=== PATIENT | male | born 1940 | race Caucasian/White ===

== ENCOUNTER 2016-11-30 15:22 | Observation (INO) ==
--- NOTE | 2016-11-30 16:00 | Emergency Department Note ---
Disposition Clinical Impression: Generalized weakness UTI (urinary tract infection) Qualifiers: Urinary tract infection type: catheter-associated UTI Indwelling urinary catheter type: indwelling urethral catheter Encounter type: initial encounter Qualified Code(s): T83.511A - Infection and inflammatory reaction due to indwelling urethral catheter, initial encounter; N39.0 - Urinary tract infection , site not specified Disposition: Admitted As Inpatient Condition: Good Referrals: Gina Newman MANUFACTURING LAB TECHNICIAN [Primary Care Provider] - Forms: Work/School Release, ED Satisfaction Letter Time of Disposition: 17:42 Weakness HPI - General Chief complaint: ED General Medical Stated complaint: ongoing weakness in knees and legs Time Seen by Provider: 11/30/16 15:45 Source: patient Mode of arrival: ambulatory Limitations: no limitations Nursing Notes Reviewed: Yes Vital Signs Reviewed: Yes - History of Present Illness HPI Narrative: 76-year-old white male presents the emergency life squad complaining of weakness. His caregiver presents with him. She reports that he has been getting increasingly weak for the last several months. He was able to ambulate with a walker at the end of the summer. Throughout the fall he is gradually deteriorated. He has reached the point now where he cannot get up and stand or weight-bear. He has some chronic back pain. He is apparently fallen several times recently according to caregiver, he denies falling. He had a biopsy of his penis done on Tuesday by Dr. Caicedo. He is apparently been trying to get into physical therapy but has been unsuccessful. Pt Subjective Complaint: generalized weakness/fatigue Onset (ago): month(s) Duration: constant Location: generalized Migration: none Pain Severity: none Pain Scale: 6 If pain, quality: sharp Improves with: none Worsens with: movement Context: other (Gradual deterioration over several months.) Associated symptoms: Reports: denies other symptoms - Related Data Home Medications Medication Instructions Recorded Confirmed Amitriptyline [Elavil] 25 mg PO HS 09/18/15 11/30/16 Docusate Sodium [Colace] 100 mg PO BID PRN 09/18/15 11/30/16 Enalapril Maleate [Vasotec] 20 mg PO QAM 09/18/15 11/30/16 Furosemide [Lasix] 60 mg PO DAILY 09/18/15 11/30/16 Gabapentin [Neurontin] 400 mg PO TID 09/18/15 11/30/16 Lactulose 10 gm PO QAM 09/18/15 11/30/16 Omeprazole [PriLOSEC] 20 mg PO DAILY 09/18/15 11/30/16 Potassium Chloride 20 meq PO DAILY 09/18/15 11/30/16 Pravastatin Sodium [Pravachol] 20 mg PO QAM 09/18/15 11/30/16 Cyanocobalamin (Vitamin B-12) 1,000 mcg PO DAILY 08/08/16 11/30/16 [Vitamin B12] Cyclobenzaprine HCl 10 mg PO TID PRN 08/08/16 11/30/16 Oxycodone HCl/Acetaminophen 1 each PO TID 08/08/16 11/30/16 [Percocet 5-325 mg Tablet] Previous Rx's Medication Instructions Recorded Psyllium [Metamucil Fiber Singles 1 packet PO TID #90 powd.pack 08/12/16 Packet] Ascorbic Acid [Vitamin C] 500 mg PO DAILY #30 tablet 08/20/16 Ferrous Sulfate 325 mg PO DAILY #30 tablet 08/20/16 Metformin [Glucophage] 500 mg PO BIDWM #60 tablet 08/20/16 Allergies Allergy/AdvReac Type Severity Reaction Status Date / Time Tizanidine [From Zanaflex] Allergy Vomiting Verified 08/08/16 14:29 All systems ED: reviewed and negative except as stated. Constitutional: Denies: fever, chills Eyes: Denies: vision change ENT ED: Denies: ear pain, throat pain Cardiovascular: Denies: chest pain, palpitations Respiratory: Denies: cough, dyspnea, wheezes Gastrointestinal: Denies: abdominal pain, nausea, vomiting, diarrhea Genitourinary: Reports: other (Indwelling Heredia catheter. Recent penis biopsy.) . Denies: urgency, dysuria Musculoskeletal: Reports: back pain (Chronic muscle spasms.) Neurological: Reports: weakness. Denies: headache, numbness, paresthesias Past Medical History - Past Medical History Medical history: Reports: arthritis, COPD, hyperlipidemia, hypertension, other Surgical history: Reports: prostatectomy Psychiatric history: Reports: no psych history - Social History Smoking Status: Former smoker Smokeless Tobacco Status: No Alcohol use: Reports: none Drug use: Reports: none Physical Exam - General Limitations: no limitations General appearance: alert, in no apparent distress - Head Head exam: atraumatic, normocephalic - Eye Eye exam: Present: PERRL, EOMI. Absent: scleral icterus, conjunctival injection - ENT ENT exam: normal oropharynx, mucous membranes moist, TM's normal bilaterally - Neck Neck exam: Present: normal inspection, full ROM, trachea midline. Absent: lymphadenopathy - Respiratory Respiratory exam: Present: normal lung sounds bilaterally. Absent: respiratory distress, wheezes - Cardiovascular Cardiovascular exam: Present: regular rate, normal rhythm, normal heart sounds - Abdominal Exam Abdominal exam: Present: soft, Non-Tender, normal bowel sounds, other (Obese). Absent: mass - Male exam: Present: other (Large biopsy of the distal penis near the base of the glans at the 3 o'clock position which is healing. The area has not been cleaned well. There is some mild diffuse erythema. There is an odor but no discharge. There is an indwelling Heredia catheter. He is circumcised.) - Extremities Exam Extremities exam: Present: other (3+ pitting edema lower extremities) - Back Exam Back exam: Absent: full ROM (Limited range of motion secondary to pain.) - Neurological Exam Neurological exam: Present: alert, oriented X3, CN II-XII intact. Absent: motor sensory deficit (Diffusely weak, but symmetrical motor function.) - Psychiatric Psychiatric exam: Present: normal affect, normal mood - Skin Skin exam: Present: warm, dry, intact. Absent: cyanosis, diaphoresis Course - Reevaluation(s) Reevaluation #1: Discussed with Dr. Galvez. Will be admitted for treatment of his UTI and social service consult for placement. Time: 17:41 Vital Signs Temperature 99.5 F 11/30/16 15:24 Pulse Rate 99 11/30/16 15:24 Respiratory Rate 16 11/30/16 15:24 Blood Pressure 129/72 11/30/16 15:24 O2 Sat by Pulse Oximetry 96 11/30/16 15:24 Temperature 99.5 F 11/30/16 15:24 Pulse Rate 91 11/30/16 17:00 Respiratory Rate 18 11/30/16 17:00 Blood Pressure 104/57 11/30/16 17:00 O2 Sat by Pulse Oximetry 94 L 11/30/16 17:00 Oxygen Delivery Oxygen Delivery Room Air Weakness - Differential Diagnosis Differential Diagnosis: Likely: acute myocardial infarction, anemia, hypoglycemia, sepsis/infection, dehydration, medication effect, metabolic, thyroid/endocrine disorder - Lab Data Result diagrams: 11/30/16 16:10 11/30/16 16:10 Lab Results 11/30/16 11/30/16 11/30/16 Range/Units 16:10 16:10 16:10 WBC 10.2 (4.3-11.1) K/mcL RBC 3.67 L (4.19-5.50) M/mcL Hgb 9.3 L (12.9-16.9) g/dL Hct 30.6 L (37.5-50.1) % MCV 83.4 (83.0-100.0) fL MCH 25.3 L (28.0-33.3) pg MCHC 30.4 L (31.6-35.5) g/dL RDW 15.3 H (11.5-14.5) % Plt Count 334 (140-400) K/mcL MPV 9.7 (9.4-12.4) fL Immature Gran % 0.5 (0-4) % Seg Neutrophils % 74.4 % Lymphocytes % 17.7 % Monocytes % 5.0 % Eosinophils % 2.1 % Basophils % 0.3 % Neutrophils # 7.6 (1.6-8.9) K/mcL Lymphocytes # 1.8 (0.6-4.6) K/mcL Monocytes # 0.5 (0.0-1.3) K/mcL Eosinophils # 0.2 (0.0-0.6) K/mcL Basophils # 0.0 (0.0-0.2) K/mcL Sodium 136 (136-145) mEq/L Potassium 4.2 (3.5-4.5) mEq/L Chloride 99 (98-109) mEq/L Carbon Dioxide 25 (19-29) mEq/L BUN 12 (8-26) mg/dL Creatinine 0.87 (0.72-1.25) mg/dL Est GFR ( Amer) > 60 (> 60) Est GFR (Non-Af Amer) > 60 (> 60) BUN/Creatinine Ratio 14 (6-26) Glucose 131 H (70-99) mg/dL Calculated Osmolality 284 (280-300) Calcium 8.8 (8.6-10.8) mg/dL Total Bilirubin 0.2 (0.2-1.2) mg/dL AST 14 (5-34) Units/L ALT 12 (0-55) Units/L Alkaline Phosphatase 65 (38-126) Units/L Troponin I 0.01 (0-0.03) ng/mL Serum Total Protein 7.3 (6.0-8.3) g/dL Albumin 3.1 L (3.5-5.0) g/dL Globulin 4.2 H (2.4-3.5) g/dL Albumin/Globulin Ratio 0.7 L (1.1-2.2) TSH (0.350-4.840) mcIU/mL Urine Color (Yellow) Urine Clarity (Clear) Urine pH (5.0-8.0) pH Units Ur Specific [place] (1.010-1.025) Urine Protein (Neg-Trace) mg/dL Urine Glucose (UA) (Normal) mg/dL Urine Ketones (Negative) mg/dL Urine Blood (Negative) Urine Nitrite (Negative) Urine Bilirubin (Negative) Urine Urobilinogen (Normal) mg/dL Ur Leukocyte Esterase (Negative) Urine Microscopic RBC (0-3) per hpf Urine Microscopic WBC (0-3) per hpf Ur Squamous Epith Cells (None-Few) per lpf Urine Bacteria (None-Few) per hpf Urine Mucus (Few) 11/30/16 11/30/16 Range/Units 16:10 16:50 WBC (4.3-11.1) K/mcL RBC (4.19-5.50) M/mcL Hgb (12.9-16.9) g/dL Hct (37.5-50.1) % MCV (83.0-100.0) fL MCH (28.0-33.3) pg MCHC (31.6-35.5) g/dL RDW (11.5-14.5) % Plt Count (140-400) K/mcL MPV (9.4-12.4) fL Immature Gran % (0-4) % Seg Neutrophils % % Lymphocytes % % Monocytes % % Eosinophils % % Basophils % % Neutrophils # (1.6-8.9) K/mcL Lymphocytes # (0.6-4.6) K/mcL Monocytes # (0.0-1.3) K/mcL Eosinophils # (0.0-0.6) K/mcL Basophils # (0.0-0.2) K/mcL Sodium (136-145) mEq/L Potassium (3.5-4.5) mEq/L Chloride (98-109) mEq/L Carbon Dioxide (19-29) mEq/L BUN (8-26) mg/dL Creatinine (0.72-1.25) mg/dL Est GFR ( Amer) (> 60) Est GFR (Non-Af Amer) (> 60) BUN/Creatinine Ratio (6-26) Glucose (70-99) mg/dL Calculated Osmolality (280-300) Calcium (8.6-10.8) mg/dL Total Bilirubin (0.2-1.2) mg/dL AST (5-34) Units/L ALT (0-55) Units/L Alkaline Phosphatase (38-126) Units/L Troponin I (0-0.03) ng/mL Serum Total Protein (6.0-8.3) g/dL Albumin (3.5-5.0) g/dL Globulin (2.4-3.5) g/dL Albumin/Globulin Ratio (1.1-2.2) TSH 2.132 (0.350-4.840) mcIU/mL Urine Color Yellow (Yellow) Urine Clarity Cloudy A (Clear) Urine pH 7.0 (5.0-8.0) pH Units Ur Specific [place] 1.015 (1.010-1.025) Urine Protein Negative (Neg-Trace) mg/dL Urine Glucose (UA) Normal (Normal) mg/dL Urine Ketones Negative (Negative) mg/dL Urine Blood Small H (Negative) Urine Nitrite Positive A (Negative) Urine Bilirubin Negative (Negative) Urine Urobilinogen Normal (Normal) mg/dL Ur Leukocyte Esterase Large H (Negative) Urine Microscopic RBC 5-15 H (0-3) per hpf Urine Microscopic WBC 50-100 H (0-3) per hpf Ur Squamous Epith Cells Few (None-Few) per lpf Urine Bacteria Many H (None-Few) per hpf Urine Mucus Few (Few) - EKG Data EKG attestation: Yes I reviewed and interpreted this EKG. EKG results narrative: Sinus tachycardia, rate of 117, nonspecific ST-T changes. Rhythm strip shows sinus tachycardia with a rate of 117, NH interval 194, QRS of 96 with no other ectopy as interpreted by me.
[2016-11-30 16:15] LABS: Basophils % 0.3 %; Eosinophils # 0.2 K/mcL (0.0-0.6); Eosinophils % 2.1 %; Hematocrit 30.6 % (37.5-50.1); Hemoglobin 9.3 g/dL (12.9-16.9); Immature Granulocytes % 0.5 % (0-4); Lymphocytes # 1.8 K/mcL (0.6-4.6); Lymphocytes % 17.7 %; Mean Corpuscular HGB Conc 30.4 g/dL (31.6-35.5); Mean Corpuscular Hemoglobin 25.3 pg (28.0-33.3); Mean Corpuscular Volume 83.4 fL (83.0-100.0); Mean Platelet Volume 9.7 fL (9.4-12.4); Monocytes # 0.5 K/mcL (0.0-1.3); Neutrophils # 7.6 K/mcL (1.6-8.9); Platelet Count 334 K/mcL (140-400); Red Blood Count 3.67 M/mcL (4.19-5.50); Red Cell Distribution Width 15.3 % (11.5-14.5); Segmented Neutrophils % 74.4 %
[2016-11-30 16:32] LABS: Alanine Aminotransferase 12 Units/L (0-55); Albumin 3.1 g/dL (3.5-5.0); Albumin/Globulin Ratio 0.7 (1.1-2.2); Alkaline Phosphatase 65 Units/L (38-126); Aspartate Amino Transferase 14 Units/L (5-34); BUN/Creatinine Ratio 14 (6-26); Bilirubin,Total 0.2 mg/dL (0.2-1.2); Blood Urea Nitrogen 12 mg/dL (8-26); Calcium 8.8 mg/dL (8.6-10.8); Carbon Dioxide 25 mEq/L (19-29); Chloride 99 mEq/L (98-109); Globulin 4.2 g/dL (2.4-3.5); Glucose 131 mg/dL (70-99); Osmolality,Calculated 284 (280-300); Potassium 4.2 mEq/L (3.5-4.5); Sodium 136 mEq/L (136-145); Total Protein 7.3 g/dL (6.0-8.3); eGFR For African Americans > 60 (> 60); eGFR For Non-African Americans > 60 (> 60)
[2016-11-30 16:58] LABS: Bilirubin,Urine Negative (Negative); Blood,Urine Small (Negative); Clarity,Urine Cloudy (Clear); Glucose,Urine (UA) Normal (Normal); Ketones,Urine Negative (Negative); Leukocyte Esterase,Urine Large (Negative); Nitrite,Urine Positive (Negative); Protein,Urine Negative (Neg-Trace); Specific Gravity,Urine 1.015 (1.010-1.025); Urobilinogen,Urine Normal (Normal)
[2016-11-30 17:16] LABS: Color,Urine Yellow (Yellow)
[2016-11-30 17:21] LABS: Bacteria,Urine Many per hpf (None-Few); Mucus,Urine Few (Few); Squamous Epithelial Cell,Urine Few per lpf (None-Few); WBC,Urine 50-100 per hpf (0-3)
[2016-11-30] MEDS ORDERED: CefTRIAXone 1,000 MG in D5% in Water (Mini-Bag+) 100 ML IVPB ONE (17:24)
[2016-11-30] MEDS ORDERED: Naloxone 0.4 MG/ML INJ IVP PRN (18:29)
[2016-11-30] MEDS: Psyllium 1 PACKET POWD.PACK PO SCH (20:37)
[2016-11-30] MEDS: Gabapentin 400 MG CAPSULE PO SCH (20:37)
[2016-11-30] MEDS: *HR* OxyCODONE/APAP 5/325 TABLET PO PRN (20:39)
[2016-12-01] MEDS: *HR* Enoxaparin 40 MG/0.4 ML SYRINGE SQ SCH (06:04)
--- NOTE | 2016-12-01 09:38 | Electrocardiograph Report ---
[facility] Test Date: 2016-11-30 Pat Name: [facility] Department: [facility] Room: [facility] Gender: M Communications Editor: [id number] : 1940 Requested By: Richard Pérez Order Number: [id number] Reading MD: Reese Frey MD Measurements Intervals [place] Rate: 117 P: 76 HI: 194 QRS: 66 QRSD: 96 T: 35 QT: 299 QTc: 369 Interpretive Statements SINUS TACHYCARDIA Electronically Signed On 12-01-16 09:37:18 EST by Reese Frey MD
[2016-12-01] MEDS: Psyllium 1 PACKET POWD.PACK PO SCH ×3 (09:45→20:24)
[2016-12-01] MEDS: *HR* OxyCODONE/APAP 5/325 TABLET PO PRN ×2 (09:45→20:23)
[2016-12-01] MEDS: Furosemide 40 MG TABLET PO SCH (09:46)
[2016-12-01] MEDS: Cyanocobalamin (B-12) 1,000 MCG TABLET PO SCH (09:46)
[2016-12-01] MEDS: Lisinopril 20 MG TABLET PO SCH (09:46)
[2016-12-01] MEDS: Gabapentin 400 MG CAPSULE PO SCH (09:46)
[2016-12-01] MEDS: *HR* Metformin 500 MG TABLET PO SCH ×2 (09:47→17:20)
[2016-12-01] MEDS: Ascorbic Acid 500 MG TABLET PO SCH (09:47)
--- NOTE | 2016-12-01 11:39 | Internal Med History&Physical ---
Date of Encounter: 12/01/16 Time of Encounter: 11:05 Assessment and Plan (1) Cervical myelopathy Current visit: Yes Status: Acute Will order a cervical MRI since he has progressive quadriparesis (2) Lumbar spondylosis Current visit: Yes Status: Acute Severe in degree based on CT of LS spine done in emergency room. We will order MRI of LS spine Qualifiers: Spinal osteoarthritis complication: unspecified spinal osteoarthritis Qualified Code(s): M47.816 - Spondylosis without myelopathy or radiculopathy, lumbar region (3) Anemia Current visit: No Status: Acute We will order anemia testing in a.m. Qualifiers: Anemia type: unspecified type Qualified Code(s): D64.9 - Anemia, unspecified (4) DM type 2 (diabetes mellitus, type 2) Current visit: No Status: Acute We will check hemoglobin A1c in a.m. Continue metformin and Accu-Cheks with SSI. Qualifiers: Diabetes mellitus complication status: without complication Diabetes mellitus fdc insulin use: without fdc use Qualified Code(s): E11.9 - Type 2 diabetes mellitus without complications (5) HTN (hypertension) Current visit: No Status: Chronic Continue ACEI and monitor blood pressure Qualifiers: Hypertension type: essential hypertension Qualified Code(s): I10 - Essential (primary) hypertension Internal Medicine - H&P: HPI Chief complaint: Progressive weakness Admitted From: Home Plans for Post Hospital Care: Home History of present illness: Mr. Otoole is a 76 year old male who came to emergency room stating he had progressive weakness onset several months ago with worsening in the past few days to the point he was unable to care for himself adequately at home. He reports he cannot get out of a chair to do ADL. He was evaluated in emergency room and admitted to [facility] until further disposition could be determined. He reports the progressive weakness involved his arms and legs. 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 He had cervical spine myelopathy and underwent decompressive surgery June 2010. He has not followed with a neurologist or neurosurgeon since then. He states he has "spasms" occurring frequently and has been prescribed cyclobenzaprine which is minimally effective. He denies large distribution strokes or seizures. He does have a diagnosis of peripheral neuropathy. Past Med Surg Social Fam HX - Past Medical History Medical history: arthritis, COPD, hyperlipidemia, hypertension, other Psychiatric history: no psych history - Past Surgical History Surgical History: prostatectomy - Social History Smoking Status: Former smoker Smokeless Tobacco Status: No Alcohol use: none Drug use: none - Family History Sister Hx Family Respiratory Disorders: Yes (Lung cancer) Internal Medicine - H&P: Meds Amitriptyline [Elavil] 25 mg PO HS 09/18/15 [History] Docusate Sodium [Colace] 100 mg PO BID PRN 09/18/15 [History] Enalapril Maleate [Vasotec] 20 mg PO QAM 09/18/15 [History] Furosemide [Lasix] 60 mg PO DAILY 09/18/15 [History] Gabapentin [Neurontin] 400 mg PO TID 09/18/15 [History] Lactulose 10 gm PO QAM 09/18/15 [History] Omeprazole [PriLOSEC] 20 mg PO DAILY 09/18/15 [History] Potassium Chloride 20 meq PO DAILY 09/18/15 [History] Pravastatin Sodium [Pravachol] 20 mg PO QAM 09/18/15 [History] Cyanocobalamin (Vitamin B-12) [Vitamin B12] 1,000 mcg PO DAILY 08/08/16 [History ] Cyclobenzaprine HCl 10 mg PO TID PRN 08/08/16 [History] Oxycodone HCl/Acetaminophen [Percocet 5-325 mg Tablet] 1 each PO TID 08/08/16 [ History] Psyllium [Metamucil Fiber Singles Packet] 1 packet PO TID #90 powd.pack [Rx] Ascorbic Acid [Vitamin C] 500 mg PO DAILY #30 tablet 08/20/16 [Rx] Ferrous Sulfate 325 mg PO DAILY #30 tablet 08/20/16 [Rx] Metformin [Glucophage] 500 mg PO BIDWM #60 tablet 08/20/16 [Rx] Allergies Tizanidine [From Zanaflex] Allergy (Verified 08/08/16 14:29) Vomiting All Systems PM: A 10-system review of systems was performed and is negative for pertinent findings except as documented above in the HPI. Review of systems: Gen.: His weight has decreased from 101 kg at the August 2016 [facility] hospitalization to present weight of 95.793 kg Cardiovascular: He has history of hypertension but denies [place] heart failure angina DVT or pulmonary embolus Respiratory: He smoked from age [age] up to 2 packs per day. He has a diagnosis of COPD but does not wear home oxygen. He has not been tested for sleep apnea. GI: He had GI bleed with hospitalization at [facility] July 2016 followed by brief swing bed stay at [facility]. He denies recurrent GI bleeding since discharge. He denies disorders of his liver gallbladder or exocrine pancreas. He has had colon polyps with polypectomy and banding of hemorrhoids during a colonoscopy at the [facility] stay. EGD was unremarkable. : He has BPH and has had 2 prostate surgeries but still requires Heredia catheter for drainage. He states the Heredia has been in place since 2009. He denies other kidney disorders Neurologic: As per history of present illness Endocrine: He has hyperlipidemia but denies diabetes or thyroid disease Hematology/oncology: He had anemia found on blood work at [facility] and was started on iron therapy. Denies internal malignancies. Psychiatric: He has depression but denies anxiety or other mental health issues Musk skeletal: He has DJD with spinal stenosis. He denies gout. - Constitutional Vitals: Temp Pulse Resp BP Pulse Ox 97.8 F 84 16 120/68 96 12/01/16 10:44 12/01/16 10:44 12/01/16 10:44 12/01/16 10:44 12/01/16 10:44 Exam: Gen.: He is a well-developed and nourished male who appears to have periodic muscle spasms during the visit HEENT: Head is atraumatic and normocephalic. Eyes: EOMI. There is no scleral icterus. Mouth: Mucosa is moist. Neck: Supple and nontender. There is no thyromegaly or adenopathy noted. Heart: Regular without murmurs gallops or ectopics. Lungs: No wheezes or crackles are heard. Abdomen: Soft and nontender. No masses or guarding noted. Extremities: There is no cyanosis edema or clubbing noted. Dorsalis pedis and posterior tibial pulses are trace palpable bilaterally. His feet are warm to touch. Neurologic: Mental status: He is talkative and a good historian. Cranial nerves : Smile is symmetric. Forehead wrinkles bilaterally. Tongue protrudes midline. EOMI. Motor: There is no pronator drift but he cannot pronate his arms well. He has periodic muscle spasms during the visit and complains of significant pain. He is able to lift both legs off the bed. Ankle flexion and extension strength against resistance is symmetric and appears near normal. Cerebellar: Finger to nose is intact bilaterally. Skin: Warm and dry Internal Med - H&P Results - Labs CBC & Chem 7: 11/30/16 16:10 11/30/16 16:10
[2016-12-01] MEDS: Gabapentin 300 MG CAPSULE PO SCH ×2 (11:58→20:23)
[2016-12-01] MEDS: CefTRIAXone 1,000 MG in D5% in Water (Mini-Bag+) 100 ML IVPB SCH (17:21)
[2016-12-02 05:45] LABS: Basophils # 0.1 K/mcL (0.0-0.2); Basophils % 0.5 %; Eosinophils # 0.2 K/mcL (0.0-0.6); Eosinophils % 1.4 %; Hematocrit 31.3 % (37.5-50.1); Hemoglobin 9.4 g/dL (12.9-16.9); Immature Granulocytes % 0.5 % (0-4); Lymphocytes # 1.3 K/mcL (0.6-4.6); Lymphocytes % 11.9 %; Mean Corpuscular Hemoglobin 25.1 pg (28.0-33.3); Mean Corpuscular Volume 83.7 fL (83.0-100.0); Mean Platelet Volume 10.1 fL (9.4-12.4); Monocytes # 0.6 K/mcL (0.0-1.3); Monocytes % 5.2 %; Neutrophils # 8.9 K/mcL (1.6-8.9); Platelet Count 332 K/mcL (140-400); Red Blood Count 3.74 M/mcL (4.19-5.50); Red Cell Distribution Width 15.6 % (11.5-14.5); Segmented Neutrophils % 80.5 %
[2016-12-02] MEDS: Gabapentin 300 MG CAPSULE PO SCH ×3 (06:26→21:42)
[2016-12-02] MEDS: *HR* Enoxaparin 40 MG/0.4 ML SYRINGE SQ SCH (06:27)
[2016-12-02] MEDS: Furosemide 40 MG TABLET PO SCH (08:15)
[2016-12-02] MEDS: Ascorbic Acid 500 MG TABLET PO SCH (08:16)
[2016-12-02] MEDS: *HR* Metformin 500 MG TABLET PO SCH ×2 (08:16→18:06)
[2016-12-02] MEDS: Cyanocobalamin (B-12) 1,000 MCG TABLET PO SCH (08:16)
[2016-12-02] MEDS: Lisinopril 20 MG TABLET PO SCH (08:16)
[2016-12-02] MEDS: Psyllium 1 PACKET POWD.PACK PO SCH ×3 (08:16→21:42)
[2016-12-02 08:31] LABS: Hemoglobin A1C 6.7 %
[2016-12-02] MEDS: *HR* OxyCODONE/APAP 5/325 TABLET PO PRN ×2 (08:37→18:06)
[2016-12-02 08:49] LABS: % Iron Saturation 7 % (20-55); Iron 21 mcg/dL (65-175); Transferrin 218 mg/dL (174-364)
[2016-12-02 09:12] LABS: Ferritin 54 ng/ml (22-275)
[2016-12-02 09:27] LABS: Folate 15.8 ng/mL (7.0-31.4)
--- NOTE | 2016-12-02 10:11 | Internal Med Progress Note ---
Date of Encounter: 12/02/16 Time of Encounter: 10:00 - Assessment and plan (1) Cervical myelopathy Current Visit: Yes Status: Acute Assessment and plan: December 02. Will order PT and OT evaluation. Social service will help coordinate longer-term placement/interventions (2) Lumbar spondylosis Current Visit: Yes Status: Acute Assessment and plan: December 02. Will order MRI of LS spine. 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 Anemia testing reviewed. We will continue ferrous sulfate with vitamin C. Qualifiers: Anemia type: unspecified type Qualified Code(s): D64.9 - Anemia, unspecified (4) DM type 2 (diabetes mellitus, type 2) Current Visit: No Status: Acute Assessment and plan: December 02. Hemoglobin A1c was satisfactory at 6.7%. Continue metformin and Accu-Cheks with SSI. Qualifiers: Diabetes mellitus complication status: without complication Diabetes mellitus petroleum terminal plant operator insulin use: without petroleum terminal plant operator use Qualified Code(s): E11.9 - Type 2 diabetes mellitus without complications (5) HTN (hypertension) Current Visit: No Status: Chronic Assessment and plan: December 02. His blood pressure has significant fluctuation. Continue present dose ACEI. Qualifiers: Hypertension type: essential hypertension Qualified Code(s): I10 - Essential (primary) hypertension (6) Muscle spasm Current Visit: Yes Status: Acute Assessment and plan: December 02. His cyclobenzaprine was changed yesterday from prn to scheduled. I started Valium and increased the dose of gabapentin. Continue this regimen since he seems improved overall. - Subjective Interval history: December 02. He has no new complaints. Does not have significant pain at present - Constitutional Vitals: Temp Pulse Resp BP Pulse Ox 98.6 F 107 18 176/77 97 12/02/16 07:11 12/02/16 07:11 12/02/16 07:11 12/02/16 07:11 12/02/16 07:11 Exam: He is sitting in a chair and appears in no acute distress. His affect is bright and cheerful. Reviewed his medications, lab, and MRI of C-spine report. The MRI of LS spine was not done. Internal Medicine: Result - Labs CBC & Chem 7: 12/02/16 05:35 11/30/16 16:10 Labs: Short CBC 12/02/16 Range/Units 05:35 WBC 11.1 (4.3-11.1) K/mcL Hgb 9.4 L (12.9-16.9) g/dL Hct 31.3 L (37.5-50.1) % Plt Count 332 (140-400) K/mcL Neutrophils # 8.9 (1.6-8.9) K/mcL - Impressions Impressions Cervical Spine MRI 12/01/16 11:29 IMPRESSION: Prior cervical spine fusion from C3 through C7. Hardware artifact obscures and distorts anatomic detail at these levels. The spinal canal is generous throughout the cervical region. Disc and osteophytes narrow the neural foramina throughout the cervical region as discussed above. 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 D/ / 12/01/2016 14:56:17 Melina Wooten MD / kerri Interpreting Provider: Melina Wooten MD Consult Discharge Plan - Plan Referrals: Gina Newman, [employer] [Primary Care Provider] - 1 week
[2016-12-02] MEDS: CefTRIAXone 1,000 MG in D5% in Water (Mini-Bag+) 100 ML IVPB SCH (18:06)
[2016-12-03] MEDS: Ascorbic Acid 500 MG TABLET PO SCH (06:26)
[2016-12-03] MEDS: Gabapentin 300 MG CAPSULE PO SCH ×2 (06:26→17:34)
[2016-12-03] MEDS: *HR* Enoxaparin 40 MG/0.4 ML SYRINGE SQ SCH (06:27)
[2016-12-03] MEDS: Psyllium 1 PACKET POWD.PACK PO SCH ×3 (07:58→20:59)
[2016-12-03] MEDS: Furosemide 40 MG TABLET PO SCH (08:01)
[2016-12-03] MEDS: *HR* Metformin 500 MG TABLET PO SCH ×2 (08:01→17:33)
[2016-12-03] MEDS: Cyanocobalamin (B-12) 1,000 MCG TABLET PO SCH (08:01)
[2016-12-03] MEDS: Lisinopril 20 MG TABLET PO SCH (08:02)
[2016-12-03] MEDS: *HR* OxyCODONE/APAP 5/325 TABLET PO PRN ×2 (08:08→21:02)
[2016-12-03] MEDS: CefTRIAXone 1,000 MG in D5% in Water (Mini-Bag+) 100 ML IVPB SCH (17:37)
[2016-12-03] MEDS: Neosporin OINT 15 GM TUBE TP SCH (21:35)
--- NOTE | 2016-12-03 22:21 | Internal Med Progress Note ---
Date of Encounter: 12/03/16 Time of Encounter: 22:17 - Assessment and plan (1) Cervical myelopathy Current Visit: Yes Status: Acute Assessment and plan: December 02. Will order PT and OT evaluation. Social service will help coordinate longer-term placement/interventions December 03 continue PT OT, nursing home social worker is working on placement. (2) UTI (urinary tract infection) Current Visit: Yes Status: Acute Assessment and plan: December 03. Continue ceftriaxone Qualifiers: Urinary tract infection type: catheter-associated UTI Indwelling urinary catheter type: indwelling urethral catheter Encounter type: initial encounter Qualified Code(s): T83.511A - Infection and inflammatory reaction due to indwelling urethral catheter, initial encounter; N39.0 - Urinary tract infection , site not specified (3) Lumbar spondylosis Current Visit: Yes Status: Acute Assessment and plan: December 02. Will order MRI of LS spine. December 03 CT scan showed severe lumbar spondylosis, L5-S1 due to bilateral pars defects. Severe bilateral foraminal stenosis and L5-S1. Consider ordering an MRI Qualifiers: Spinal osteoarthritis complication: unspecified spinal osteoarthritis Qualified Code(s): M47.816 - Spondylosis without myelopathy or radiculopathy, lumbar region (4) Muscle spasm Current Visit: Yes Status: Acute Assessment and plan: December 02. His cyclobenzaprine was changed yesterday from prn to scheduled. I started Valium and increased the dose of gabapentin. Continue this regimen since he seems improved overall December 03 continue Flexeril and Valium and gabapentin (5) Anemia Current Visit: No Status: Acute Assessment and plan: December 02. Anemia testing reviewed. We will continue ferrous sulfate with vitamin C. December 03. Continue ferrous sulfate and vitamin C Qualifiers: Anemia type: unspecified type Qualified Code(s): D64.9 - Anemia, unspecified (6) DM type 2 (diabetes mellitus, type 2) Current Visit: No Status: Acute Assessment and plan: December 02. Hemoglobin A1c was satisfactory at 6.7%. Continue metformin and Accu-Cheks with SSI. December 03. Continue metformin and Accu-Cheks with sliding scale insulin Qualifiers: Diabetes mellitus complication status: without complication Diabetes mellitus terminal computer operator insulin use: without terminal computer operator use Qualified Code(s): E11.9 - Type 2 diabetes mellitus without complications - Time Spent With Patient 25 - 35 minutes - Subjective Interval history: 86-year-old male presented to the emergency room for progressive weakness over several months. He was unable to walk clinic home [facility] presented to come here for rehabilitation and potentially to go to rehabilitation facility. Guillain-[place] syndrome in 2008. Cervical spinal myelopathy and underwent to correct decompression surgery in 2009. He is having muscle spasms in the uses Flexeril. He also has peripheral neuropathy. No emergency room they found that he had urinary tract infection was noted that he has indwelling Heredia catheter. He was started on Rocephin. He reports that his strength is slowly improving his during rehabilitation. Denies any chest pain or shortness breath. His questions were answered and concerns addressed - Constitutional Vitals: Temp Pulse Resp BP Pulse Ox 98.0 F 97 18 125/63 95 12/03/16 19:21 12/03/16 19:21 12/03/16 19:21 12/03/16 19:21 12/03/16 19:21 Exam: General: Alert and oriented, no acute distress Lungs: Clear to auscultation bilaterally without wheezing or crackles Heart: Regular rate and rythms without murmer or rubs Abdomen: Soft, nontender, Extremities: no edema, redness Internal Medicine: Result - Labs CBC & Chem 7: 12/02/16 05:35 11/30/16 16:10 Consult Discharge Plan - Plan Referrals: Gina Newman CNP [Primary Care Provider] - 1 week
[2016-12-04] MEDS: Gabapentin 300 MG CAPSULE PO SCH ×3 (03:51→15:53)
[2016-12-04] MEDS: *HR* OxyCODONE/APAP 5/325 TABLET PO PRN ×3 (06:06→16:21)
[2016-12-04] MEDS: *HR* Enoxaparin 40 MG/0.4 ML SYRINGE SQ SCH (06:06)
[2016-12-04] MEDS: Ascorbic Acid 500 MG TABLET PO SCH (06:06)
[2016-12-04 07:36] LABS: Basophils % 0.5 %; Eosinophils # 0.2 K/mcL (0.0-0.6); Eosinophils % 1.7 %; Hematocrit 31.1 % (37.5-50.1); Hemoglobin 9.2 g/dL (12.9-16.9); Immature Granulocytes % 0.6 % (0-4); Lymphocytes # 1.1 K/mcL (0.6-4.6); Lymphocytes % 13.2 %; Mean Corpuscular HGB Conc 29.6 g/dL (31.6-35.5); Mean Corpuscular Hemoglobin 25.1 pg (28.0-33.3); Mean Corpuscular Volume 84.7 fL (83.0-100.0); Monocytes # 0.5 K/mcL (0.0-1.3); Neutrophils # 6.7 K/mcL (1.6-8.9); Platelet Count 312 K/mcL (140-400); Red Blood Count 3.67 M/mcL (4.19-5.50); Red Cell Distribution Width 15.9 % (11.5-14.5)
[2016-12-04] MEDS: Psyllium 1 PACKET POWD.PACK PO SCH ×3 (08:11→20:56)
[2016-12-04] MEDS: *HR* Metformin 500 MG TABLET PO SCH ×2 (08:11→15:50)
[2016-12-04] MEDS: Furosemide 40 MG TABLET PO SCH (08:12)
[2016-12-04] MEDS: Lisinopril 20 MG TABLET PO SCH (08:12)
[2016-12-04] MEDS: Cyanocobalamin (B-12) 1,000 MCG TABLET PO SCH (08:12)
[2016-12-04 08:59] LABS: BUN/Creatinine Ratio 19 (6-26); Blood Urea Nitrogen 17 mg/dL (8-26); Calcium 9.1 mg/dL (8.6-10.8); Carbon Dioxide 28 mEq/L (19-29); Chloride 100 mEq/L (98-109); Glucose 127 mg/dL (70-99); Osmolality,Calculated 287 (280-300); Potassium 4.6 mEq/L (3.5-4.5); Sodium 137 mEq/L (136-145); eGFR For African Americans > 60 (> 60); eGFR For Non-African Americans > 60 (> 60)
[2016-12-04] MEDS: Neosporin OINT 15 GM TUBE TP SCH ×2 (11:17→20:58)
[2016-12-04] MEDS: CefTRIAXone 1,000 MG in D5% in Water (Mini-Bag+) 100 ML IVPB SCH (15:49)
[2016-12-04] MEDS ORDERED: 0.9 % Sodium Chloride 250 ML IVC ONE (19:05)
--- NOTE | 2016-12-04 21:39 | Internal Med Progress Note ---
Date of Encounter: 12/04/16 Time of Encounter: 21:35 - Assessment and plan (1) Hypotension Current Visit: Yes Status: Acute Assessment and plan: December 04. It could be a side effect of a muscle relaxer such as Flexeril since he had that reaction to tie tizanidine. DC'd Flexeril increase the Valium to bolus fluid and decrease the Lasix 60-20 Qualifiers: Hypotension type: unspecified hypotension type Qualified Code(s): I95.9 - Hypotension, unspecified (2) Cervical myelopathy Current Visit: Yes Status: Acute Assessment and plan: December 02. Will order PT and OT evaluation. Social service will help coordinate longer-term placement/interventions December 03 continue PT OT, high school social science teacher is working on placement. December 04. Acute PT OT and social service involvement (3) UTI (urinary tract infection) Current Visit: Yes Status: Acute Assessment and plan: December 03. Continue ceftriaxone December 04. Repeat a urinalysis and continue Rocephin Qualifiers: Urinary tract infection type: catheter-associated UTI Indwelling urinary catheter type: indwelling urethral catheter Encounter type: initial encounter Qualified Code(s): T83.511A - Infection and inflammatory reaction due to indwelling urethral catheter, initial encounter; N39.0 - Urinary tract infection , site not specified (4) Lumbar spondylosis Current Visit: Yes Status: Acute Assessment and plan: December 02. Will order MRI of LS spine. December 03 CT scan showed severe lumbar spondylosis, L5-S1 due to bilateral pars defects. Severe bilateral foraminal stenosis and L5-S1. 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 His cyclobenzaprine was changed yesterday from prn to scheduled. I started Valium and increased the dose of gabapentin. Continue this regimen since he seems improved overall December 03 continue Flexeril and Valium and gabapentin December 04. Stop the Flexeril as potential hypotensive side effect only increase the Valium and continue the gabapentin (6) Anemia Current Visit: No Status: Acute Assessment and plan: December 02. Anemia testing reviewed. We will continue ferrous sulfate with vitamin C. December 03. Continue ferrous sulfate and vitamin C December 04. Stable continue ferrous sulfate Qualifiers: Anemia type: unspecified type Qualified Code(s): D64.9 - Anemia, unspecified (7) DM type 2 (diabetes mellitus, type 2) Current Visit: No Status: Acute Assessment and plan: December 02. Hemoglobin A1c was satisfactory at 6.7%. Continue metformin and Accu-Cheks with SSI. December 03. Continue metformin and Accu-Cheks with sliding scale insulin December 04. Continue metformin and at checks with slight scale Qualifiers: Diabetes mellitus complication status: without complication Diabetes mellitus terminal press operator insulin use: without terminal press operator use Qualified Code(s): E11.9 - Type 2 diabetes mellitus without complications - Time Spent With Patient 25 - 35 minutes - Subjective Interval history: 86-year-old male presented to the emergency room for progressive weakness over several months. He was unable to walk clinic home [facility] presented to come here for rehabilitation and potentially to go to rehabilitation facility. Guillain-[place] syndrome in 2008. Cervical spinal myelopathy and underwent to correct decompression surgery in 2009. He is having muscle spasms in the uses Flexeril. He also has peripheral neuropathy. No emergency room they found that he had urinary tract infection was noted that he has indwelling Heredia catheter. He was started on Rocephin. He reports that his strength is slowly improving his during rehabilitation. Denies any chest pain or shortness breath. His questions were answered and concerns addressed December 04. Patient blood pressure dropped over 50 I ordered a saline bolus 250 mL and it came up to 100/54. I saw on his wristband that he was allergic to tizanidine which she sat reported made him have to low blood pressure. He is on Lasix 60 mg and also on Flexeril scheduled and Valium scheduled. I will cut his Lasix down to 20 stop the Flexeril and increased volume to 3 times a day 5 mg. Maybe the diet will have enough muscle relaxant component but not so much that causes blood pressure dropped his potassium came slightly up at 4.6 hemoglobin 9.2 down he denied any chest pain or shortness breath towards his muscles are spasming again. Questions answered and concerns addressed. We will repeat a urinalysis to see if we can stop the Rocephin. - Constitutional Vitals: Temp Pulse Resp BP Pulse Ox 98.5 F 91 18 100/54 93 L 12/04/16 18:34 12/04/16 18:34 12/04/16 18:34 12/04/16 20:20 12/04/16 18:34 Exam: General: Alert and oriented, no acute distress Lungs: Clear to auscultation bilaterally without wheezing or crackles Heart: Regular rate and rythms without murmer or rubs Abdomen: Soft, nontender, Extremities: no edema, redness Internal Medicine: Result - Labs CBC & Chem 7: 12/04/16 06:13 12/04/16 06:13 Labs: Short CBC 12/04/16 Range/Units 06:13 WBC 8.6 (4.3-11.1) K/mcL Hgb 9.2 L (12.9-16.9) g/dL Hct 31.1 L (37.5-50.1) % Plt Count 312 (140-400) K/mcL Neutrophils # 6.7 (1.6-8.9) K/mcL BMP 12/04/16 06:13 Sodium 137 Potassium 4.6 H Chloride 100 Carbon Dioxide 28 BUN 17 Creatinine 0.89 Glucose 127 H Calcium 9.1 Consult Discharge Plan - Plan Referrals: Gina Newman, PIPELINE INSPECTOR [Primary Care Provider] - 1 week
[2016-12-04 23:28] LABS: Bilirubin,Urine Negative (Negative); Blood,Urine Small (Negative); Glucose,Urine (UA) Normal (Normal); Ketones,Urine Negative (Negative); Leukocyte Esterase,Urine Small (Negative); Nitrite,Urine Negative (Negative); Protein,Urine Negative (Neg-Trace); Specific Gravity,Urine <= 1.005 (1.010-1.025); Urobilinogen,Urine Normal (Normal)
[2016-12-04 23:32] LABS: Clarity,Urine Slightly Cloudy (Clear); Color,Urine Light Yellow (Yellow)
[2016-12-04 23:33] LABS: Squamous Epithelial Cell,Urine Few per lpf (None-Few)
[2016-12-04 23:35] LABS: Bacteria,Urine Many per hpf (None-Few); Mucus,Urine Few (Few); WBC,Urine 15-30 per hpf (0-3)
[2016-12-05] MEDS: Gabapentin 300 MG CAPSULE PO SCH ×3 (00:05→15:24)
[2016-12-05] MEDS: Ascorbic Acid 500 MG TABLET PO SCH (05:58)
[2016-12-05] MEDS: *HR* OxyCODONE/APAP 5/325 TABLET PO PRN ×2 (05:59→21:58)
[2016-12-05] MEDS: *HR* Enoxaparin 40 MG/0.4 ML SYRINGE SQ SCH (05:59)
[2016-12-05] MEDS: Psyllium 1 PACKET POWD.PACK PO SCH ×3 (07:48→21:54)
[2016-12-05] MEDS: Cyanocobalamin (B-12) 1,000 MCG TABLET PO SCH (07:49)
[2016-12-05] MEDS: Lisinopril 20 MG TABLET PO SCH (07:49)
[2016-12-05] MEDS: *HR* Metformin 500 MG TABLET PO SCH ×2 (07:50→17:35)
[2016-12-05] MEDS: Furosemide 40 MG TABLET PO SCH (07:50)
[2016-12-05] MEDS: Magnesium Oxide 400 MG TABLET PO SCH (07:50)
[2016-12-05] MEDS: Neosporin OINT 15 GM TUBE TP SCH ×2 (12:26→21:54)
--- NOTE | 2016-12-05 16:49 | Internal Med Progress Note ---
Date of Encounter: 12/05/16 Time of Encounter: 16:47 - Assessment and plan (1) UTI (urinary tract infection) Current Visit: Yes Status: Acute Assessment and plan: December 03. Continue ceftriaxone December 04. Repeat a urinalysis and continue Rocephin December 05. UA showed many bacteria, few squamous cell, small leukocyte esterase, change Rocephin to Cipro Qualifiers: Urinary tract infection type: catheter-associated UTI Indwelling urinary catheter type: indwelling urethral catheter Encounter type: initial encounter Qualified Code(s): T83.511A - Infection and inflammatory reaction due to indwelling urethral catheter, initial encounter; N39.0 - Urinary tract infection , site not specified (2) Muscle spasm Current Visit: Yes Status: Acute Assessment and plan: December 02. His cyclobenzaprine was changed yesterday from prn to scheduled. I started Valium and increased the dose of gabapentin. Continue this regimen since he seems improved overall December 03 continue Flexeril and Valium and gabapentin December 04. Stop the Flexeril as potential hypotensive side effect only increase the Valium and continue the gabapentin December 05. Hopefully low-dose Valium will help continue gabapentin (3) Hypotension Current Visit: Yes Status: Acute Assessment and plan: December 04. It could be a side effect of a muscle relaxer such as Flexeril since he had that reaction to tie tizanidine. DC'd Flexeril increase the Valium to bolus fluid and decrease the Lasix 6020 December 05 decrease the Valium to 2 mg by mouth 3 times a day hold if systolic blood pressure less than 110 if that does not work we may need to stop the Lasix Qualifiers: Hypotension type: unspecified hypotension type Qualified Code(s): I95.9 - Hypotension, unspecified (4) Cervical myelopathy Current Visit: Yes Status: Chronic Assessment and plan: December 02. Will order PT and OT evaluation. Social service will help coordinate longer-term placement/interventions December 03 continue PT OT, nursing home social worker is working on placement. December 04. PT OT and social service involvement December 05. PT, OT, social service (5) Lumbar spondylosis Current Visit: Yes Status: Acute Assessment and plan: December 02. Will order MRI of LS spine. December 03 CT scan showed severe lumbar spondylosis, L5-S1 due to bilateral pars defects. Severe bilateral foraminal stenosis and L5-S1. Consider ordering an MRI December 04 consider MRI of LS spine December 05. Dr. 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 Anemia testing reviewed. We will continue ferrous sulfate with vitamin C. December 03. Continue ferrous sulfate and vitamin C December 04. Stable continue ferrous sulfate December 05. Continue ferrous sulfate Qualifiers: Anemia type: unspecified type Qualified Code(s): D64.9 - Anemia, unspecified (7) DM type 2 (diabetes mellitus, type 2) Current Visit: No Status: Acute Assessment and plan: December 02. Hemoglobin A1c was satisfactory at 6.7%. Continue metformin and Accu-Cheks with SSI. December 03. Continue metformin and Accu-Cheks with sliding scale insulin December 04. Continue metformin and at checks with slight scale December 05. Stable continue metformin and Accu-Cheks with sliding scale Qualifiers: Diabetes mellitus complication status: without complication Diabetes mellitus marine oil terminal superintendent insulin use: without marine oil terminal superintendent use Qualified Code(s): E11.9 - Type 2 diabetes mellitus without complications - Time Spent With Patient 25 - 35 minutes - Subjective Interval history: 86-year-old male presented to the emergency room for progressive weakness over several months. He was unable to walk clinic home [facility] presented to come here for rehabilitation and potentially to go to rehabilitation facility. Guillain-[place] syndrome in 2008. Cervical spinal myelopathy and underwent to correct decompression surgery in 2009. He is having muscle spasms in the uses Flexeril. He also has peripheral neuropathy. No emergency room they found that he had urinary tract infection was noted that he has indwelling Heredia catheter. He was started on Rocephin. He reports that his strength is slowly improving his during rehabilitation. Denies any chest pain or shortness breath. His questions were answered and concerns addressed December 04. Patient blood pressure dropped over 50 I ordered a saline bolus 250 mL and it came up to 100/54. I saw on his wristband that he was allergic to tizanidine which she sat reported made him have to low blood pressure. He is on Lasix 60 mg and also on Flexeril scheduled and Valium scheduled. I will cut his Lasix down to 20 stop the Flexeril and increased volume to 3 times a day 5 mg. Maybe the diet will have enough muscle relaxant component but not so much that causes blood pressure dropped his potassium came slightly up at 4.6 hemoglobin 9.2 down he denied any chest pain or shortness breath towards his muscles are spasming again. Questions answered and concerns addressed. We will repeat a urinalysis to see if we can stop the Rocephin. December 05. Vision bloodshot pressure continues to go down 90/51 so the Flexeril have been stopped. Start him on Valium 5 mg 3 times a day hold if systolic blood pressure was in the 110. He seems to be sensitive to muscle relaxer medicines I decreased the Valium 2 mg 3 times a day with same instructions his magnesium level was 1.6 normal answers questions dresses concerns - Constitutional Vitals: Temp Pulse Resp BP Pulse Ox 98.5 F 102 18 90/51 93 L 12/05/16 09:27 12/05/16 09:27 12/05/16 09:27 12/05/16 09:27 12/05/16 09:27 Exam: General: Alert and oriented, no acute distress Lungs: Clear to auscultation bilaterally without wheezing or crackles Heart: Regular rate and rythms without murmer or rubs Abdomen: Soft, nontender, Extremities: no edema, redness Internal Medicine: Result - Labs CBC & Chem 7: 12/04/16 06:13 12/04/16 06:13 Labs: Urine 12/04/16 Range/Units 23:05 Urine Color Light Yellow (Yellow) Urine Clarity Slightly Cloudy A (Clear) Urine pH 5.0 (5.0-8.0) pH Units Ur Specific [place] <= 1.005 L (1.010-1.025) Urine Protein Negative (Neg-Trace) mg/dL Urine Glucose (UA) Normal (Normal) mg/dL Consult Discharge Plan - Plan Referrals: Gina Newman CNP [Primary Care Provider] - 1 week
[2016-12-05] MEDS ORDERED: Dextrose Gel 15 GM PO PRN ×2 (21:40)
[2016-12-05] MEDS ORDERED: D5% in Water 1,000 ML IV PRN (21:40)
[2016-12-05] MEDS ORDERED: *HR* Dextrose 50 % in Water (Syg) 50 ML SYRINGE IVP PRN (21:40)
[2016-12-05] MEDS: Insulin LISPRO 300 UNITS/3 ML VIAL SQ SCH (21:55)
[2016-12-06] MEDS: Gabapentin 300 MG CAPSULE PO SCH ×4 (00:21→20:44)
[2016-12-06] MEDS: Ascorbic Acid 500 MG TABLET PO SCH (06:28)
[2016-12-06] MEDS: *HR* Enoxaparin 40 MG/0.4 ML SYRINGE SQ SCH (06:28)
[2016-12-06 06:48] LABS: Basophils % 0.3 %; Eosinophils # 0.2 K/mcL (0.0-0.6); Hematocrit 36.2 % (37.5-50.1); Hemoglobin 10.5 g/dL (12.9-16.9); Immature Granulocytes % 0.7 % (0-4); Lymphocytes # 1.6 K/mcL (0.6-4.6); Lymphocytes % 13.2 %; Mean Corpuscular Hemoglobin 24.8 pg (28.0-33.3); Mean Corpuscular Volume 85.6 fL (83.0-100.0); Mean Platelet Volume 10.9 fL (9.4-12.4); Monocytes # 0.6 K/mcL (0.0-1.3); Monocytes % 5.2 %; Neutrophils # 9.4 K/mcL (1.6-8.9); Platelet Count 366 K/mcL (140-400); Red Blood Count 4.23 M/mcL (4.19-5.50); Red Cell Distribution Width 16.1 % (11.5-14.5); Segmented Neutrophils % 78.6 %
[2016-12-06 07:03] LABS: BUN/Creatinine Ratio 25 (6-26); Blood Urea Nitrogen 30 mg/dL (8-26); Calcium 8.9 mg/dL (8.6-10.8); Carbon Dioxide 23 mEq/L (19-29); Chloride 101 mEq/L (98-109); Glucose 115 mg/dL (70-99); Osmolality,Calculated 289 (280-300); Potassium 5.2 mEq/L (3.5-4.5); Sodium 136 mEq/L (136-145); eGFR For African Americans > 60 (> 60); eGFR For Non-African Americans 58 (> 60)
[2016-12-06] MEDS: Psyllium 1 PACKET POWD.PACK PO SCH ×3 (08:29→20:44)
[2016-12-06] MEDS: Lisinopril 20 MG TABLET PO SCH (08:32)
[2016-12-06] MEDS: Furosemide 40 MG TABLET PO SCH (08:32)
[2016-12-06] MEDS: Cyanocobalamin (B-12) 1,000 MCG TABLET PO SCH (08:32)
[2016-12-06] MEDS: *HR* Metformin 500 MG TABLET PO SCH ×2 (08:32→17:19)
[2016-12-06] MEDS: Insulin LISPRO 300 UNITS/3 ML VIAL SQ SCH ×4 (08:33→20:46)
[2016-12-06] MEDS: Magnesium Oxide 400 MG TABLET PO SCH (08:34)
[2016-12-06] MEDS: Neosporin OINT 15 GM TUBE TP SCH ×2 (08:53→20:55)
[2016-12-06] MEDS ORDERED: Furosemide 20 MG TABLET PO SCH (09:00)
[2016-12-06] MEDS: *HR* OxyCODONE/APAP 5/325 TABLET PO PRN (10:29)
--- NOTE | 2016-12-06 15:00 | Internal Med Progress Note ---
Date of Encounter: 12/06/16 Time of Encounter: 14:50 - Assessment and plan (1) Cervical myelopathy Current Visit: Yes Status: Chronic Assessment and plan: December 02. Will order PT and OT evaluation. Social service will help coordinate longer-term placement/interventions December 03 continue PT OT, manager social media is working on placement. December 04. PT OT and social service involvement December 05. PT, OT, social service December 06. The cervical spine MRI of 11/30/2016 was reviewed. Continue PT and OT. Awaiting notification of Medicaid approval pending for transfer to [facility] (2) Lumbar spondylosis Current Visit: Yes Status: Acute Assessment and plan: December 02. Will order MRI of LS spine. December 03 CT scan showed severe lumbar spondylosis, L5-S1 due to bilateral pars defects. Severe bilateral foraminal stenosis and L5-S1. Consider ordering an MRI December 04 consider MRI of LS spine December 05. Dr. Galvez is coming back he mentioned the MRI of LS spine he may order that tomorrow December 06. Declined MRI of LS spine last week. Continue PT and OT. 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 Anemia testing reviewed. We will continue ferrous sulfate with vitamin C. December 03. Continue ferrous sulfate and vitamin C December 04. Stable continue ferrous sulfate December 05. Continue ferrous sulfate December 06. Continue ferrous sulfate and vitamin C. Hemoglobin has improved to 10.5. Qualifiers: Anemia type: unspecified type Qualified Code(s): D64.9 - Anemia, unspecified (4) DM type 2 (diabetes mellitus, type 2) Current Visit: No Status: Acute Assessment and plan: December 02. Hemoglobin A1c was satisfactory at 6.7%. Continue metformin and Accu-Cheks with SSI. December 03. Continue metformin and Accu-Cheks with sliding scale insulin December 04. Continue metformin and at checks with slight scale December 05. Stable continue metformin and Accu-Cheks with sliding scale Qualifiers: Diabetes mellitus complication status: without complication Diabetes mellitus manager long term care insulin use: without longterm use Qualified Code(s): E11.9 - Type 2 diabetes mellitus without complications (5) HTN (hypertension) Current Visit: No Status: Chronic Assessment and plan: December 02. His blood pressure has significant fluctuation. Continue present dose ACEI. December 06. His blood pressure has decreased. We will discontinue lisinopril. Qualifiers: Hypertension type: essential hypertension Qualified Code(s): I10 - Essential (primary) hypertension (6) Muscle spasm Current Visit: Yes Status: Acute Assessment and plan: December 02. His cyclobenzaprine was changed yesterday from prn to scheduled. I started Valium and increased the dose of gabapentin. Continue this regimen since he seems improved overall December 03 continue Flexeril and Valium and gabapentin December 04. Stop the Flexeril as potential hypotensive side effect only increase the Valium and continue the gabapentin December 05. Hopefully low-dose Valium will help continue gabapentin December 06. Will continue Valium (lower dose) and gabapentin. (7) UTI (urinary tract infection) Current Visit: Yes Status: Acute Assessment and plan: December 03. Continue ceftriaxone December 04. Repeat a urinalysis and continue Rocephin December 05. UA showed many bacteria, few squamous cell, small leukocyte esterase, change Rocephin to Cipro December 06. I explained to the patient because the indwelling catheter he will always have bacteria in the urine. There is no clear evidence of infection however. Discontinue antibiotics. Qualifiers: Urinary tract infection type: catheter-associated UTI Indwelling urinary catheter type: indwelling urethral catheter Encounter type: initial encounter Qualified Code(s): T83.511A - Infection and inflammatory reaction due to indwelling urethral catheter, initial encounter; N39.0 - Urinary tract infection , site not specified - Subjective Interval history: December 02. He has no new complaints. Does not have significant pain at present December 06. He has no new complaints - Constitutional Vitals: Temp Pulse Resp BP Pulse Ox 98.6 F 99 16 81/48 94 L 12/06/16 14:04 12/06/16 14:04 12/06/16 14:04 12/06/16 14:04 12/06/16 14:04 Exam: He is lying in bed resting comfortably. He does not have significant pain. His affect is bright and cheerful. I reviewed his medications and lab results. He declined proceeding with MRI of the LS spine last week. A cervical spine MRI was done. Internal Medicine: Result - Labs CBC & Chem 7: 12/06/16 05:32 12/06/16 05:32 Labs: Short CBC 12/06/16 Range/Units 05:32 WBC 12.0 H (4.3-11.1) K/mcL Hgb 10.5 L (12.9-16.9) g/dL Hct 36.2 L (37.5-50.1) % Plt Count 366 (140-400) K/mcL Neutrophils # 9.4 H (1.6-8.9) K/mcL BMP 12/06/16 05:32 Sodium 136 Potassium 5.2 H Chloride 101 Carbon Dioxide 23 BUN 30 H D Creatinine 1.22 Glucose 115 H Calcium 8.9 Consult Discharge Plan - Plan Referrals: Gina Newman, CRADLE PLACER [Primary Care Provider] - 1 week
[2016-12-07] MEDS: Ascorbic Acid 500 MG TABLET PO SCH (05:47)
[2016-12-07] MEDS: Gabapentin 300 MG CAPSULE PO SCH ×3 (05:47→21:09)
[2016-12-07] MEDS: *HR* Enoxaparin 40 MG/0.4 ML SYRINGE SQ SCH (05:47)
[2016-12-07] MEDS: Magnesium Oxide 400 MG TABLET PO SCH (08:33)
[2016-12-07] MEDS: *HR* Metformin 500 MG TABLET PO SCH ×2 (08:33→15:47)
[2016-12-07] MEDS: Insulin LISPRO 300 UNITS/3 ML VIAL SQ SCH ×4 (08:34→21:25)
[2016-12-07] MEDS: Psyllium 1 PACKET POWD.PACK PO SCH ×3 (08:34→21:08)
[2016-12-07] MEDS: Cyanocobalamin (B-12) 1,000 MCG TABLET PO SCH (08:34)
[2016-12-07] MEDS: Neosporin OINT 15 GM TUBE TP SCH ×2 (08:38→21:10)
--- NOTE | 2016-12-07 15:45 | Internal Med Progress Note ---
Date of Encounter: 12/07/16 Time of Encounter: 15:35 - Assessment and plan (1) Cervical myelopathy Current Visit: Yes Status: Chronic Assessment and plan: December 02. Will order PT and OT evaluation. Social service will help coordinate longer-term placement/interventions December 03 continue PT OT, socially responsible investment adviser is working on placement. December 04. PT OT and social service involvement December 05. PT, OT, social service December 06. The cervical spine MRI of 11/30/2016 was reviewed. Continue PT and OT. Awaiting notification of Medicaid approval pending for transfer to [facility] December 07. Await Medicaid approval for SNF (2) Lumbar spondylosis Current Visit: Yes Status: Acute Assessment and plan: December 02. Will order MRI of LS spine. December 03 CT scan showed severe lumbar spondylosis, L5-S1 due to bilateral pars defects. Severe bilateral foraminal stenosis and L5-S1. Consider ordering an MRI December 04 consider MRI of LS spine December 05. Dr. Galvez is coming back he mentioned the MRI of LS spine he may order that tomorrow December 06. Declined MRI of LS spine last week. Continue PT and OT. 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 Anemia testing reviewed. We will continue ferrous sulfate with vitamin C. December 03. Continue ferrous sulfate and vitamin C December 04. Stable continue ferrous sulfate December 05. Continue ferrous sulfate December 06. Continue ferrous sulfate and vitamin C. Hemoglobin has improved to 10.5. Qualifiers: Anemia type: unspecified type Qualified Code(s): D64.9 - Anemia, unspecified (4) DM type 2 (diabetes mellitus, type 2) Current Visit: No Status: Acute Assessment and plan: December 02. Hemoglobin A1c was satisfactory at 6.7%. Continue metformin and Accu-Cheks with SSI. December 03. Continue metformin and Accu-Cheks with sliding scale insulin December 04. Continue metformin and at checks with slight scale December 05. Stable continue metformin and Accu-Cheks with sliding scale Qualifiers: Diabetes mellitus complication status: without complication Diabetes mellitus fpc insulin use: without terminal operations manager use Qualified Code(s): E11.9 - Type 2 diabetes mellitus without complications (5) HTN (hypertension) Current Visit: No Status: Chronic Assessment and plan: December 02. His blood pressure has significant fluctuation. Continue present dose ACEI. December 06. His blood pressure has decreased. We will discontinue lisinopril. December 07. Blood pressure shows significant fluctuation. Will observe for now without restarting lisinopril. Qualifiers: Hypertension type: essential hypertension Qualified Code(s): I10 - Essential (primary) hypertension (6) Muscle spasm Current Visit: Yes Status: Acute Assessment and plan: December 02. His cyclobenzaprine was changed yesterday from prn to scheduled. I started Valium and increased the dose of gabapentin. Continue this regimen since he seems improved overall December 03 continue Flexeril and Valium and gabapentin December 04. Stop the Flexeril as potential hypotensive side effect only increase the Valium and continue the gabapentin December 05. Hopefully low-dose Valium will help continue gabapentin December 06. Will continue Valium (lower dose) and gabapentin. December 07. He reports no improvement on present medication. I will add low dose Dilantin and baclofen and continue Valium and gabapentin. (7) UTI (urinary tract infection) Current Visit: Yes Status: Acute Assessment and plan: December 03. Continue ceftriaxone December 04. Repeat a urinalysis and continue Rocephin December 05. UA showed many bacteria, few squamous cell, small leukocyte esterase, change Rocephin to Cipro December 06. I explained to the patient because the indwelling catheter he will always have bacteria in the urine. There is no clear evidence of infection however. Discontinue antibiotics. Qualifiers: Urinary tract infection type: catheter-associated UTI Indwelling urinary catheter type: indwelling urethral catheter Encounter type: initial encounter Qualified Code(s): T83.511A - Infection and inflammatory reaction due to indwelling urethral catheter, initial encounter; N39.0 - Urinary tract infection , site not specified (8) Penis, cellulitis Current Visit: Yes Status: Acute Assessment and plan: December 08. Will add doxycycline - Subjective Interval history: December 02. He has no new complaints. Does not have significant pain at present December 06. He has no new complaints December 07. He has no specific complaints. - Constitutional Vitals: Temp Pulse Resp BP Pulse Ox 98.6 F 99 15 159/66 95 12/07/16 15:28 12/07/16 15:28 12/07/16 15:28 12/07/16 15:28 12/07/16 15:28 Exam: He is resting comfortably in bed. His Heredia catheter is in place. There is some erythema of the penis with a shallow ulcerative area on the left side of the shaft. I reviewed his medications and lab results. Internal Medicine: Result - Labs CBC & Chem 7: 12/06/16 05:32 12/06/16 05:32 Consult Discharge Plan - Plan Referrals: Gina Newman IMPLEMENTATION SPECIALIST [Primary Care Provider] - 1 week
[2016-12-07] MEDS: *HR* OxyCODONE/APAP 5/325 TABLET PO PRN ×2 (15:54→21:17)
[2016-12-07] MEDS: Doxycycline 100 MG CAPSULE PO SCH (21:08)
[2016-12-07] MEDS: Baclofen 10 MG TABLET PO SCH (21:25)
[2016-12-08] MEDS: *HR* Enoxaparin 40 MG/0.4 ML SYRINGE SQ SCH (04:35)
[2016-12-08] MEDS: *HR* OxyCODONE/APAP 5/325 TABLET PO PRN ×3 (04:35→23:13)
[2016-12-08] MEDS: Gabapentin 300 MG CAPSULE PO SCH ×3 (04:35→23:13)
[2016-12-08] MEDS: Ascorbic Acid 500 MG TABLET PO SCH (04:36)
[2016-12-08 06:09] LABS: Basophils % 0.4 %; Eosinophils # 0.2 K/mcL (0.0-0.6); Eosinophils % 2.7 %; Hematocrit 29.1 % (37.5-50.1); Hemoglobin 8.6 g/dL (12.9-16.9); Immature Granulocytes % 0.8 % (0-4); Lymphocytes # 1.1 K/mcL (0.6-4.6); Lymphocytes % 12.8 %; Mean Corpuscular HGB Conc 29.6 g/dL (31.6-35.5); Mean Corpuscular Hemoglobin 25.2 pg (28.0-33.3); Mean Corpuscular Volume 85.3 fL (83.0-100.0); Mean Platelet Volume 10.6 fL (9.4-12.4); Monocytes # 0.5 K/mcL (0.0-1.3); Monocytes % 5.9 %; Neutrophils # 6.5 K/mcL (1.6-8.9); Platelet Count 296 K/mcL (140-400); Red Blood Count 3.41 M/mcL (4.19-5.50); Red Cell Distribution Width 15.9 % (11.5-14.5); Segmented Neutrophils % 77.4 %
[2016-12-08 06:24] LABS: BUN/Creatinine Ratio 24 (6-26); Blood Urea Nitrogen 21 mg/dL (8-26); Calcium 8.9 mg/dL (8.6-10.8); Carbon Dioxide 22 mEq/L (19-29); Chloride 103 mEq/L (98-109); Glucose 120 mg/dL (70-99); Osmolality,Calculated 288 (280-300); Potassium 4.7 mEq/L (3.5-4.5); Sodium 137 mEq/L (136-145); eGFR For African Americans > 60 (> 60); eGFR For Non-African Americans > 60 (> 60)
[2016-12-08] MEDS: Insulin LISPRO 300 UNITS/3 ML VIAL SQ SCH ×4 (07:24→21:05)
[2016-12-08] MEDS: Baclofen 10 MG TABLET PO SCH ×3 (08:46→21:04)
[2016-12-08] MEDS: Furosemide 20 MG TABLET PO SCH (08:46)
[2016-12-08] MEDS: Psyllium 1 PACKET POWD.PACK PO SCH ×3 (08:46→21:05)
[2016-12-08] MEDS: Doxycycline 100 MG CAPSULE PO SCH ×2 (08:46→21:05)
[2016-12-08] MEDS: Neosporin OINT 15 GM TUBE TP SCH ×2 (08:47→21:05)
[2016-12-08] MEDS: *HR* Metformin 500 MG TABLET PO SCH ×2 (08:47→17:01)
[2016-12-08] MEDS: Magnesium Oxide 400 MG TABLET PO SCH (08:47)
[2016-12-08] MEDS: Cyanocobalamin (B-12) 1,000 MCG TABLET PO SCH (08:47)
--- NOTE | 2016-12-08 16:02 | Internal Med Progress Note ---
Date of Encounter: 12/08/16 Time of Encounter: 15:55 - Assessment and plan (1) Cervical myelopathy Current Visit: Yes Status: Chronic Assessment and plan: December 02. Will order PT and OT evaluation. Social service will help coordinate longer-term placement/interventions December 03 continue PT OT, social work program coordinator is working on placement. December 04. PT OT and social service involvement December 05. PT, OT, social service December 06. The cervical spine MRI of 11/30/2016 was reviewed. Continue PT and OT. Awaiting notification of Medicaid approval pending for transfer to [facility] December 07. Await Medicaid approval for SNF (2) Lumbar spondylosis Current Visit: Yes Status: Acute Assessment and plan: December 02. Will order MRI of LS spine. December 03 CT scan showed severe lumbar spondylosis, L5-S1 due to bilateral pars defects. Severe bilateral foraminal stenosis and L5-S1. Consider ordering an MRI December 04 consider MRI of LS spine December 05. Dr. Galvez is coming back he mentioned the MRI of LS spine he may order that tomorrow December 06. Declined MRI of LS spine last week. Continue PT and OT. 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 Anemia testing reviewed. We will continue ferrous sulfate with vitamin C. December 03. Continue ferrous sulfate and vitamin C December 04. Stable continue ferrous sulfate December 05. Continue ferrous sulfate December 06. Continue ferrous sulfate and vitamin C. Hemoglobin has improved to 10.5. Qualifiers: Anemia type: unspecified type Qualified Code(s): D64.9 - Anemia, unspecified (4) DM type 2 (diabetes mellitus, type 2) Current Visit: No Status: Acute Assessment and plan: December 02. Hemoglobin A1c was satisfactory at 6.7%. Continue metformin and Accu-Cheks with SSI. December 03. Continue metformin and Accu-Cheks with sliding scale insulin December 04. Continue metformin and at checks with slight scale December 05. Stable continue metformin and Accu-Cheks with sliding scale December 08. Blood sugars are improved. Continue metformin and Accu-Cheks with SSI Qualifiers: Diabetes mellitus complication status: without complication Diabetes mellitus [facility] insulin use: without [facility] use Qualified Code(s): E11.9 - Type 2 diabetes mellitus without complications (5) HTN (hypertension) Current Visit: No Status: Chronic Assessment and plan: December 02. His blood pressure has significant fluctuation. Continue present dose ACEI. December 06. His blood pressure has decreased. We will discontinue lisinopril. December 07. Blood pressure shows significant fluctuation. Will observe for now without restarting lisinopril. December 08. Continue to observe without lisinopril Qualifiers: Hypertension type: essential hypertension Qualified Code(s): I10 - Essential (primary) hypertension (6) Muscle spasm Current Visit: Yes Status: Acute Assessment and plan: December 02. His cyclobenzaprine was changed yesterday from prn to scheduled. I started Valium and increased the dose of gabapentin. Continue this regimen since he seems improved overall December 03 continue Flexeril and Valium and gabapentin December 04. Stop the Flexeril as potential hypotensive side effect only increase the Valium and continue the gabapentin December 05. Hopefully low-dose Valium will help continue gabapentin December 06. Will continue Valium (lower dose) and gabapentin. December 07. He reports no improvement on present medication. I will add low dose Dilantin and baclofen and continue Valium and gabapentin. December 08. Continue Dilantin, baclofen, Valium, and gabapentin (7) UTI (urinary tract infection) Current Visit: Yes Status: Acute Assessment and plan: December 03. Continue ceftriaxone December 04. Repeat a urinalysis and continue Rocephin December 05. UA showed many bacteria, few squamous cell, small leukocyte esterase, change Rocephin to Cipro December 06. I explained to the patient because the indwelling catheter he will always have bacteria in the urine. There is no clear evidence of infection however. Discontinue antibiotics. Qualifiers: Urinary tract infection type: catheter-associated UTI Indwelling urinary catheter type: indwelling urethral catheter Encounter type: initial encounter Qualified Code(s): T83.511A - Infection and inflammatory reaction due to indwelling urethral catheter, initial encounter; N39.0 - Urinary tract infection , site not specified (8) Penis, cellulitis Current Visit: Yes Status: Acute - Subjective Interval history: December 02. He has no new complaints. Does not have significant pain at present December 06. He has no new complaints December 07. He has no specific complaints. December 08. He has no new complaints - Constitutional Vitals: Temp Pulse Resp BP Pulse Ox 98.4 F 94 18 116/66 96 12/08/16 15:15 12/08/16 15:15 12/08/16 15:15 12/08/16 15:15 12/08/16 15:15 Exam: He is sitting in a chair resting Comfortably. His extremities show no edema. I reviewed his medications and lab results. Medicaid approval is still pending Internal Medicine: Result - Labs CBC & Chem 7: 12/08/16 05:23 12/08/16 05:23 Labs: Short CBC 12/08/16 Range/Units 05:23 WBC 8.4 (4.3-11.1) K/mcL Hgb 8.6 L D (12.9-16.9) g/dL Hct 29.1 L (37.5-50.1) % Plt Count 296 (140-400) K/mcL Neutrophils # 6.5 (1.6-8.9) K/mcL BMP 12/08/16 05:23 Sodium 137 Potassium 4.7 H Chloride 103 Carbon Dioxide 22 BUN 21 Creatinine 0.86 Glucose 120 H Calcium 8.9 Consult Discharge Plan - Plan Referrals: Gian Newman, WHEAT WASHER [Primary Care Provider] - 1 week
[2016-12-09] MEDS: Ascorbic Acid 500 MG TABLET PO SCH (06:23)
[2016-12-09] MEDS: Gabapentin 300 MG CAPSULE PO SCH ×2 (06:23→15:02)
[2016-12-09] MEDS: *HR* Enoxaparin 40 MG/0.4 ML SYRINGE SQ SCH (06:23)
[2016-12-09] MEDS: Insulin LISPRO 300 UNITS/3 ML VIAL SQ SCH ×4 (08:21→20:29)
[2016-12-09] MEDS: *HR* Metformin 500 MG TABLET PO SCH ×2 (08:29→17:19)
[2016-12-09] MEDS: Magnesium Oxide 400 MG TABLET PO SCH (08:30)
[2016-12-09] MEDS: Doxycycline 100 MG CAPSULE PO SCH ×2 (08:30→20:18)
[2016-12-09] MEDS: Baclofen 10 MG TABLET PO SCH ×3 (08:30→20:24)
[2016-12-09] MEDS: Psyllium 1 PACKET POWD.PACK PO SCH ×3 (08:31→20:18)
[2016-12-09] MEDS: Cyanocobalamin (B-12) 1,000 MCG TABLET PO SCH (08:31)
[2016-12-09] MEDS: Neosporin OINT 15 GM TUBE TP SCH ×2 (08:33→20:19)
--- NOTE | 2016-12-09 17:05 | Internal Med Progress Note ---
Date of Encounter: 12/09/16 Time of Encounter: 16:55 - Assessment and plan (1) Cervical myelopathy Current Visit: Yes Status: Chronic Assessment and plan: December 02. Will order PT and OT evaluation. Social service will help coordinate longer-term placement/interventions December 03 continue PT OT, drug abuse social worker is working on placement. December 04. PT OT and social service involvement December 05. PT, OT, social service December 06. The cervical spine MRI of 11/30/2016 was reviewed. Continue PT and OT. Awaiting notification of Medicaid approval pending for transfer to [facility] December 07. Await Medicaid approval for SNF December 09. I explained to him that his POA is not returning calls or cooperating adequately to allow [facility] to complete his Medicaid application. I instructed him to call his POA and relayed this information to expedite his transfer. (2) Lumbar spondylosis Current Visit: Yes Status: Acute Assessment and plan: December 02. Will order MRI of LS spine. December 03 CT scan showed severe lumbar spondylosis, L5-S1 due to bilateral pars defects. Severe bilateral foraminal stenosis and L5-S1. Consider ordering an MRI December 04 consider MRI of LS spine December 05. Dr. Galvez is coming back he mentioned the MRI of LS spine he may order that tomorrow December 06. Declined MRI of LS spine last week. Continue PT and OT. 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 Anemia testing reviewed. We will continue ferrous sulfate with vitamin C. December 03. Continue ferrous sulfate and vitamin C December 04. Stable continue ferrous sulfate December 05. Continue ferrous sulfate December 06. Continue ferrous sulfate and vitamin C. Hemoglobin has improved to 10.5. December 09. Recheck labs in a.m. Qualifiers: Anemia type: unspecified type Qualified Code(s): D64.9 - Anemia, unspecified (4) DM type 2 (diabetes mellitus, type 2) Current Visit: No Status: Acute Assessment and plan: December 02. Hemoglobin A1c was satisfactory at 6.7%. Continue metformin and Accu-Cheks with SSI. December 03. Continue metformin and Accu-Cheks with sliding scale insulin December 04. Continue metformin and at checks with slight scale December 05. Stable continue metformin and Accu-Cheks with sliding scale December 08. Blood sugars are improved. Continue metformin and Accu-Cheks with SSI December 09. Continue metformin with Accu-Cheks and SSI Qualifiers: Diabetes mellitus complication status: without complication Diabetes mellitus detention insulin use: without long term care administrator use Qualified Code(s): E11.9 - Type 2 diabetes mellitus without complications (5) HTN (hypertension) Current Visit: No Status: Chronic Assessment and plan: December 02. His blood pressure has significant fluctuation. Continue present dose ACEI. December 06. His blood pressure has decreased. We will discontinue lisinopril. December 07. Blood pressure shows significant fluctuation. Will observe for now without restarting lisinopril. December 08. Continue to observe without lisinopril Qualifiers: Hypertension type: essential hypertension Qualified Code(s): I10 - Essential (primary) hypertension (6) Muscle spasm Current Visit: Yes Status: Acute Assessment and plan: December 02. His cyclobenzaprine was changed yesterday from prn to scheduled. I started Valium and increased the dose of gabapentin. Continue this regimen since he seems improved overall December 03 continue Flexeril and Valium and gabapentin December 04. Stop the Flexeril as potential hypotensive side effect only increase the Valium and continue the gabapentin December 05. Hopefully low-dose Valium will help continue gabapentin December 06. Will continue Valium (lower dose) and gabapentin. December 07. He reports no improvement on present medication. I will add low dose Dilantin and baclofen and continue Valium and gabapentin. December 08. Continue Dilantin, baclofen, Valium, and gabapentin December 09. He did not mention these today. Continue present regimen (7) UTI (urinary tract infection) Current Visit: Yes Status: Acute Assessment and plan: December 03. Continue ceftriaxone December 04. Repeat a urinalysis and continue Rocephin December 05. UA showed many bacteria, few squamous cell, small leukocyte esterase, change Rocephin to Cipro December 06. I explained to the patient because the indwelling catheter he will always have bacteria in the urine. There is no clear evidence of infection however. Discontinue antibiotics. Qualifiers: Urinary tract infection type: catheter-associated UTI Indwelling urinary catheter type: indwelling urethral catheter Encounter type: initial encounter Qualified Code(s): T83.511A - Infection and inflammatory reaction due to indwelling urethral catheter, initial encounter; N39.0 - Urinary tract infection , site not specified (8) Penis, cellulitis Current Visit: Yes Status: Acute Assessment and plan: December 08. Will add doxycycline - Subjective Interval history: December 02. He has no new complaints. Does not have significant pain at present December 06. He has no new complaints December 07. He has no specific complaints. December 08. He has no new complaints December 09. He has no new complaints - Constitutional Vitals: Temp Pulse Resp BP Pulse Ox 98.5 F 92 18 136/74 96 12/09/16 15:03 12/09/16 15:03 12/09/16 15:03 12/09/16 15:03 12/09/16 15:03 Exam: He is sitting in a chair eating supper and appears comfortable. His affect is bright and cheerful. I reviewed his medications and lab results. Internal Medicine: Result - Labs CBC & Chem 7: 12/08/16 05:23 12/08/16 05:23 Consult Discharge Plan - Plan Referrals: Gina Newman, SPORTS DIRECTOR [Primary Care Provider] - 1 week
[2016-12-09] MEDS: *HR* OxyCODONE/APAP 5/325 TABLET PO PRN (20:24)
[2016-12-10] MEDS: Gabapentin 300 MG CAPSULE PO SCH ×3 (01:22→16:59)
[2016-12-10] MEDS: *HR* Enoxaparin 40 MG/0.4 ML SYRINGE SQ SCH (06:47)
[2016-12-10] MEDS: Ascorbic Acid 500 MG TABLET PO SCH (06:48)
[2016-12-10 06:57] LABS: Basophils % 0.4 %; Eosinophils # 0.2 K/mcL (0.0-0.6); Eosinophils % 2.3 %; Hematocrit 30.7 % (37.5-50.1); Immature Granulocytes % 0.7 % (0-4); Lymphocytes # 1.2 K/mcL (0.6-4.6); Mean Corpuscular HGB Conc 29.3 g/dL (31.6-35.5); Mean Corpuscular Hemoglobin 24.8 pg (28.0-33.3); Mean Corpuscular Volume 84.6 fL (83.0-100.0); Mean Platelet Volume 10.6 fL (9.4-12.4); Monocytes # 0.6 K/mcL (0.0-1.3); Neutrophils # 6.5 K/mcL (1.6-8.9); Platelet Count 306 K/mcL (140-400); Red Blood Count 3.63 M/mcL (4.19-5.50); Red Cell Distribution Width 15.9 % (11.5-14.5); Segmented Neutrophils % 75.6 %
[2016-12-10 07:17] LABS: Blood Urea Nitrogen 17 mg/dL (8-26); Calcium 9.3 mg/dL (8.6-10.8); Carbon Dioxide 23 mEq/L (19-29); Chloride 104 mEq/L (98-109); Glucose 117 mg/dL (70-99); Osmolality,Calculated 287 (280-300); Potassium 4.6 mEq/L (3.5-4.5); Sodium 137 mEq/L (136-145)
[2016-12-10] MEDS: Insulin LISPRO 300 UNITS/3 ML VIAL SQ SCH ×4 (07:40→21:57)
[2016-12-10] MEDS: Doxycycline 100 MG CAPSULE PO SCH ×2 (08:31→21:56)
[2016-12-10] MEDS: Furosemide 20 MG TABLET PO SCH (08:31)
[2016-12-10] MEDS: Baclofen 10 MG TABLET PO SCH ×3 (08:31→21:56)
[2016-12-10] MEDS: *HR* Metformin 500 MG TABLET PO SCH ×2 (08:31→16:59)
[2016-12-10] MEDS: Cyanocobalamin (B-12) 1,000 MCG TABLET PO SCH (08:31)
[2016-12-10] MEDS: Magnesium Oxide 400 MG TABLET PO SCH (08:31)
[2016-12-10] MEDS: Psyllium 1 PACKET POWD.PACK PO SCH ×3 (08:32→21:57)
[2016-12-10] MEDS: *HR* OxyCODONE/APAP 5/325 TABLET PO PRN ×2 (08:32→21:57)
[2016-12-10] MEDS: Neosporin OINT 15 GM TUBE TP SCH ×2 (08:37→21:58)
[2016-12-10 09:38] LABS: BUN/Creatinine Ratio 20 (6-26); eGFR For African Americans > 60 (> 60); eGFR For Non-African Americans > 60 (> 60)
--- NOTE | 2016-12-10 15:45 | Internal Med Progress Note ---
Date of Encounter: 12/10/16 Time of Encounter: 15:30 - Assessment and plan (1) Cervical myelopathy Current Visit: Yes Status: Chronic Assessment and plan: December 02. Will order PT and OT evaluation. Social service will help coordinate longer-term placement/interventions December 03 continue PT OT, social sciences research scientist is working on placement. December 04. PT OT and social service involvement December 05. PT, OT, social service December 06. The cervical spine MRI of 11/30/2016 was reviewed. Continue PT and OT. Awaiting notification of Medicaid approval pending for transfer to [facility] December 07. Await Medicaid approval for SNF December 09. I explained to him that his POA is not returning calls or cooperating adequately to allow [facility] to complete his Medicaid application. I instructed him to call his POA and relayed this information to expedite his transfer. (2) Lumbar spondylosis Current Visit: Yes Status: Acute Assessment and plan: December 02. Will order MRI of LS spine. December 03 CT scan showed severe lumbar spondylosis, L5-S1 due to bilateral pars defects. Severe bilateral foraminal stenosis and L5-S1. Consider ordering an MRI December 04 consider MRI of LS spine December 05. Dr. Galvez is coming back he mentioned the MRI of LS spine he may order that tomorrow December 06. Declined MRI of LS spine last week. Continue PT and OT. 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 Anemia testing reviewed. We will continue ferrous sulfate with vitamin C. December 03. Continue ferrous sulfate and vitamin C December 04. Stable continue ferrous sulfate December 05. Continue ferrous sulfate December 06. Continue ferrous sulfate and vitamin C. Hemoglobin has improved to 10.5. December 09. Recheck labs in a.m. December 10. Hemoglobin stable at 9.0. Qualifiers: Anemia type: unspecified type Qualified Code(s): D64.9 - Anemia, unspecified (4) DM type 2 (diabetes mellitus, type 2) Current Visit: No Status: Acute Assessment and plan: December 02. Hemoglobin A1c was satisfactory at 6.7%. Continue metformin and Accu-Cheks with SSI. December 03. Continue metformin and Accu-Cheks with sliding scale insulin December 04. Continue metformin and at checks with slight scale December 05. Stable continue metformin and Accu-Cheks with sliding scale December 08. Blood sugars are improved. Continue metformin and Accu-Cheks with SSI December 09. Continue metformin with Accu-Cheks and SSI December 10. Blood sugars are stable. Continue present management Qualifiers: Diabetes mellitus complication status: without complication Diabetes mellitus airport utility worker insulin use: without [facility] use Qualified Code(s): E11.9 - Type 2 diabetes mellitus without complications (5) HTN (hypertension) Current Visit: No Status: Chronic Assessment and plan: December 02. His blood pressure has significant fluctuation. Continue present dose ACEI. December 06. His blood pressure has decreased. We will discontinue lisinopril. December 07. Blood pressure shows significant fluctuation. Will observe for now without restarting lisinopril. December 08. Continue to observe without lisinopril December 10. Blood pressures are stable. Continue to observe without medication Qualifiers: Hypertension type: essential hypertension Qualified Code(s): I10 - Essential (primary) hypertension (6) Muscle spasm Current Visit: Yes Status: Acute Assessment and plan: December 02. His cyclobenzaprine was changed yesterday from prn to scheduled. I started Valium and increased the dose of gabapentin. Continue this regimen since he seems improved overall December 03 continue Flexeril and Valium and gabapentin December 04. Stop the Flexeril as potential hypotensive side effect only increase the Valium and continue the gabapentin December 05. Hopefully low-dose Valium will help continue gabapentin December 06. Will continue Valium (lower dose) and gabapentin. December 07. He reports no improvement on present medication. I will add low dose Dilantin and baclofen and continue Valium and gabapentin. December 08. Continue Dilantin, baclofen, Valium, and gabapentin December 09. He did not mention these today. Continue present regimen (7) UTI (urinary tract infection) Current Visit: Yes Status: Acute Assessment and plan: December 03. Continue ceftriaxone December 04. Repeat a urinalysis and continue Rocephin December 05. UA showed many bacteria, few squamous cell, small leukocyte esterase, change Rocephin to Cipro December 06. I explained to the patient because the indwelling catheter he will always have bacteria in the urine. There is no clear evidence of infection however. Discontinue antibiotics. Qualifiers: Urinary tract infection type: catheter-associated UTI Indwelling urinary catheter type: indwelling urethral catheter Encounter type: initial encounter Qualified Code(s): T83.511A - Infection and inflammatory reaction due to indwelling urethral catheter, initial encounter; N39.0 - Urinary tract infection , site not specified (8) Penis, cellulitis Current Visit: Yes Status: Acute Assessment and plan: December 08. Will add doxycycline December 10. We will continue doxycycline through December 13. - Subjective Interval history: December 02. He has no new complaints. Does not have significant pain at present December 06. He has no new complaints December 07. He has no specific complaints. December 08. He has no new complaints December 09. He has no new complaints December 10. He has no new complaints - Constitutional Vitals: Temp Pulse Resp BP Pulse Ox 97.9 F 89 16 110/65 98 12/10/16 11:15 12/10/16 11:15 12/10/16 11:15 12/10/16 11:15 12/10/16 11:15 Exam: He is resting comfortably in the chair. He states he walked the hwang earlier with assistance. His affect is bright and cheerful. I reviewed his medications and lab results. Internal Medicine: Result - Labs CBC & Chem 7: 12/10/16 06:14 12/10/16 06:14 Labs: Short CBC 12/10/16 Range/Units 06:14 WBC 8.6 (4.3-11.1) K/mcL Hgb 9.0 L (12.9-16.9) g/dL Hct 30.7 L (37.5-50.1) % Plt Count 306 (140-400) K/mcL Neutrophils # 6.5 (1.6-8.9) K/mcL BMP 12/10/16 06:14 Sodium 137 Potassium 4.6 H Chloride 104 Carbon Dioxide 23 BUN 17 Creatinine 0.85 Glucose 117 H Calcium 9.3 Consult Discharge Plan - Plan Referrals: Gina Hwang CNP [Primary Care Provider] - 1 week
[2016-12-11] MEDS: Gabapentin 300 MG CAPSULE PO SCH ×3 (01:36→21:31)
[2016-12-11] MEDS: Ascorbic Acid 500 MG TABLET PO SCH (06:38)
[2016-12-11] MEDS: *HR* Enoxaparin 40 MG/0.4 ML SYRINGE SQ SCH (06:39)
[2016-12-11] MEDS: Magnesium Oxide 400 MG TABLET PO SCH (08:27)
[2016-12-11] MEDS: *HR* Metformin 500 MG TABLET PO SCH ×2 (08:27→21:39)
[2016-12-11] MEDS: Cyanocobalamin (B-12) 1,000 MCG TABLET PO SCH (08:27)
[2016-12-11] MEDS: Doxycycline 100 MG CAPSULE PO SCH ×2 (08:27→21:40)
[2016-12-11] MEDS: Psyllium 1 PACKET POWD.PACK PO SCH ×3 (08:27→21:43)
[2016-12-11] MEDS: Baclofen 10 MG TABLET PO SCH ×3 (08:27→21:42)
[2016-12-11] MEDS: *HR* OxyCODONE/APAP 5/325 TABLET PO PRN ×2 (08:38→21:42)
[2016-12-11] MEDS: Neosporin OINT 15 GM TUBE TP SCH ×2 (08:38→21:43)
--- NOTE | 2016-12-11 17:44 | Internal Med Progress Note ---
Date of Encounter: 12/11/16 Time of Encounter: 17:30 - Assessment and plan (1) Cervical myelopathy Current Visit: Yes Status: Chronic Assessment and plan: December 02. Will order PT and OT evaluation. Social service will help coordinate longer-term placement/interventions December 03 continue PT OT, social services analyst is working on placement. December 04. PT OT and social service involvement December 05. PT, OT, social service December 06. The cervical spine MRI of 11/30/2016 was reviewed. Continue PT and OT. Awaiting notification of Medicaid approval pending for transfer to [facility] December 07. Await Medicaid approval for SNF December 09. I explained to him that his POA is not returning calls or cooperating adequately to allow [facility] to complete his Medicaid application. I instructed him to call his POA and relayed this information to expedite his transfer. (2) Lumbar spondylosis Current Visit: Yes Status: Acute Assessment and plan: December 02. Will order MRI of LS spine. December 03 CT scan showed severe lumbar spondylosis, L5-S1 due to bilateral pars defects. Severe bilateral foraminal stenosis and L5-S1. Consider ordering an MRI December 04 consider MRI of LS spine December 05. Dr. Galvez is coming back he mentioned the MRI of LS spine he may order that tomorrow December 06. Declined MRI of LS spine last week. Continue PT and OT. 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 Anemia testing reviewed. We will continue ferrous sulfate with vitamin C. December 03. Continue ferrous sulfate and vitamin C December 04. Stable continue ferrous sulfate December 05. Continue ferrous sulfate December 06. Continue ferrous sulfate and vitamin C. Hemoglobin has improved to 10.5. December 09. Recheck labs in a.m. December 10. Hemoglobin stable at 9.0. Qualifiers: Anemia type: unspecified type Qualified Code(s): D64.9 - Anemia, unspecified (4) DM type 2 (diabetes mellitus, type 2) Current Visit: No Status: Acute Assessment and plan: December 02. Hemoglobin A1c was satisfactory at 6.7%. Continue metformin and Accu-Cheks with SSI. December 03. Continue metformin and Accu-Cheks with sliding scale insulin December 04. Continue metformin and at checks with slight scale December 05. Stable continue metformin and Accu-Cheks with sliding scale December 08. Blood sugars are improved. Continue metformin and Accu-Cheks with SSI December 09. Continue metformin with Accu-Cheks and SSI December 10. Blood sugars are stable. Continue present management Qualifiers: Diabetes mellitus complication status: without complication Diabetes mellitus moth exterminator insulin use: without mcc use Qualified Code(s): E11.9 - Type 2 diabetes mellitus without complications (5) HTN (hypertension) Current Visit: No Status: Chronic Assessment and plan: December 02. His blood pressure has significant fluctuation. Continue present dose ACEI. December 06. His blood pressure has decreased. We will discontinue lisinopril. December 07. Blood pressure shows significant fluctuation. Will observe for now without restarting lisinopril. December 08. Continue to observe without lisinopril December 10. Blood pressures are stable. Continue to observe without medication Qualifiers: Hypertension type: essential hypertension Qualified Code(s): I10 - Essential (primary) hypertension (6) Muscle spasm Current Visit: Yes Status: Acute Assessment and plan: December 02. His cyclobenzaprine was changed yesterday from prn to scheduled. I started Valium and increased the dose of gabapentin. Continue this regimen since he seems improved overall December 03 continue Flexeril and Valium and gabapentin December 04. Stop the Flexeril as potential hypotensive side effect only increase the Valium and continue the gabapentin December 05. Hopefully low-dose Valium will help continue gabapentin December 06. Will continue Valium (lower dose) and gabapentin. December 07. He reports no improvement on present medication. I will add low dose Dilantin and baclofen and continue Valium and gabapentin. December 08. Continue Dilantin, baclofen, Valium, and gabapentin December 09. He did not mention these today. Continue present regimen December 11. Will increase baclofen to 10 mg 3 times a day and Dilantin to 100 mg every 8 hours. (7) UTI (urinary tract infection) Current Visit: Yes Status: Acute Assessment and plan: December 03. Continue ceftriaxone December 04. Repeat a urinalysis and continue Rocephin December 05. UA showed many bacteria, few squamous cell, small leukocyte esterase, change Rocephin to Cipro December 06. I explained to the patient because the indwelling catheter he will always have bacteria in the urine. There is no clear evidence of infection however. Discontinue antibiotics. Qualifiers: Urinary tract infection type: catheter-associated UTI Indwelling urinary catheter type: indwelling urethral catheter Encounter type: initial encounter Qualified Code(s): T83.511A - Infection and inflammatory reaction due to indwelling urethral catheter, initial encounter; N39.0 - Urinary tract infection , site not specified (8) Penis, cellulitis Current Visit: Yes Status: Acute Assessment and plan: December 08. Will add doxycycline December 10. We will continue doxycycline through December 13. - Subjective Interval history: December 02. He has no new complaints. Does not have significant pain at present December 06. He has no new complaints December 07. He has no specific complaints. December 08. He has no new complaints December 09. He has no new complaints December 10. He has no new complaints December 11. He has no new complaints. He states his muscle spasms are minimally improved - Constitutional Vitals: Temp Pulse Resp BP Pulse Ox 97.8 F 90 18 93/60 96 12/11/16 15:18 12/11/16 15:18 12/11/16 15:18 12/11/16 15:18 12/11/16 15:18 Exam: He is sitting on the side of the bed comfortably eating supper. His extremities show no edema. His affect is bright and cheerful. I reviewed his medications and lab results. Internal Medicine: Result - Labs CBC & Chem 7: 12/10/16 06:14 12/10/16 06:14 Consult Discharge Plan - Plan Referrals: Gina Newman TOWER OBSERVER [Primary Care Provider] - 1 week
[2016-12-11] MEDS: Insulin LISPRO 300 UNITS/3 ML VIAL SQ SCH ×4 (21:39→21:46)
[2016-12-12] MEDS: Gabapentin 300 MG CAPSULE PO SCH ×3 (06:00→16:53)
[2016-12-12] MEDS: *HR* Enoxaparin 40 MG/0.4 ML SYRINGE SQ SCH (06:01)
[2016-12-12] MEDS: *HR* OxyCODONE/APAP 5/325 TABLET PO PRN ×2 (06:01→21:23)
[2016-12-12] MEDS: Ascorbic Acid 500 MG TABLET PO SCH (06:03)
[2016-12-12] MEDS: Insulin LISPRO 300 UNITS/3 ML VIAL SQ SCH ×4 (08:49→21:26)
[2016-12-12] MEDS: Furosemide 20 MG TABLET PO SCH (08:49)
[2016-12-12] MEDS: Doxycycline 100 MG CAPSULE PO SCH ×3 (08:49→22:20)
[2016-12-12] MEDS: Baclofen 10 MG TABLET PO SCH ×3 (08:49→21:22)
[2016-12-12] MEDS: *HR* Metformin 500 MG TABLET PO SCH ×2 (08:49→16:53)
[2016-12-12] MEDS: Psyllium 1 PACKET POWD.PACK PO SCH ×4 (08:50→22:20)
[2016-12-12] MEDS: Magnesium Oxide 400 MG TABLET PO SCH (08:50)
[2016-12-12] MEDS: Cyanocobalamin (B-12) 1,000 MCG TABLET PO SCH (08:50)
[2016-12-12] MEDS: Neosporin OINT 15 GM TUBE TP SCH ×2 (08:50→21:25)
--- NOTE | 2016-12-12 12:46 | Internal Med Progress Note ---
Date of Encounter: 12/12/16 Time of Encounter: 12:35 - Assessment and plan (1) Cervical myelopathy Current Visit: Yes Status: Chronic Assessment and plan: December 02. Will order PT and OT evaluation. Social service will help coordinate longer-term placement/interventions December 03 continue PT OT, oncology social worker is working on placement. December 04. PT OT and social service involvement December 05. PT, OT, social service December 06. The cervical spine MRI of 11/30/2016 was reviewed. Continue PT and OT. Awaiting notification of Medicaid approval pending for transfer to [facility] December 07. Await Medicaid approval for SNF December 09. I explained to him that his POA is not returning calls or cooperating adequately to allow [facility] to complete his Medicaid application. I instructed him to call his POA and relayed this information to expedite his transfer. (2) Lumbar spondylosis Current Visit: Yes Status: Acute Assessment and plan: December 02. Will order MRI of LS spine. December 03 CT scan showed severe lumbar spondylosis, L5-S1 due to bilateral pars defects. Severe bilateral foraminal stenosis and L5-S1. Consider ordering an MRI December 04 consider MRI of LS spine December 05. Dr. Galvez is coming back he mentioned the MRI of LS spine he may order that tomorrow December 06. Declined MRI of LS spine last week. Continue PT and OT. 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 Anemia testing reviewed. We will continue ferrous sulfate with vitamin C. December 03. Continue ferrous sulfate and vitamin C December 04. Stable continue ferrous sulfate December 05. Continue ferrous sulfate December 06. Continue ferrous sulfate and vitamin C. Hemoglobin has improved to 10.5. December 09. Recheck labs in a.m. December 10. Hemoglobin stable at 9.0. Qualifiers: Anemia type: unspecified type Qualified Code(s): D64.9 - Anemia, unspecified (4) DM type 2 (diabetes mellitus, type 2) Current Visit: No Status: Acute Assessment and plan: December 02. Hemoglobin A1c was satisfactory at 6.7%. Continue metformin and Accu-Cheks with SSI. December 03. Continue metformin and Accu-Cheks with sliding scale insulin December 04. Continue metformin and at checks with slight scale December 05. Stable continue metformin and Accu-Cheks with sliding scale December 08. Blood sugars are improved. Continue metformin and Accu-Cheks with SSI December 09. Continue metformin with Accu-Cheks and SSI December 10. Blood sugars are stable. Continue present management Qualifiers: Diabetes mellitus complication status: without complication Diabetes mellitus long term care phlebotomist insulin use: without custodial use Qualified Code(s): E11.9 - Type 2 diabetes mellitus without complications (5) HTN (hypertension) Current Visit: No Status: Chronic Assessment and plan: December 02. His blood pressure has significant fluctuation. Continue present dose ACEI. December 06. His blood pressure has decreased. We will discontinue lisinopril. December 07. Blood pressure shows significant fluctuation. Will observe for now without restarting lisinopril. December 08. Continue to observe without lisinopril December 10. Blood pressures are stable. Continue to observe without medication Qualifiers: Hypertension type: essential hypertension Qualified Code(s): I10 - Essential (primary) hypertension (6) Muscle spasm Current Visit: Yes Status: Acute Assessment and plan: December 02. His cyclobenzaprine was changed yesterday from prn to scheduled. I started Valium and increased the dose of gabapentin. Continue this regimen since he seems improved overall December 03 continue Flexeril and Valium and gabapentin December 04. Stop the Flexeril as potential hypotensive side effect only increase the Valium and continue the gabapentin December 05. Hopefully low-dose Valium will help continue gabapentin December 06. Will continue Valium (lower dose) and gabapentin. December 07. He reports no improvement on present medication. I will add low dose Dilantin and baclofen and continue Valium and gabapentin. December 08. Continue Dilantin, baclofen, Valium, and gabapentin December 09. He did not mention these today. Continue present regimen December 11. Will increase baclofen to 10 mg 3 times a day and Dilantin to 100 mg every 8 hours. December 12. Continue present regimen (7) Penis, cellulitis Current Visit: Yes Status: Acute Assessment and plan: December 08. Will add doxycycline December 10. We will continue doxycycline through December 13. - Subjective Interval history: December 02. He has no new complaints. Does not have significant pain at present December 06. He has no new complaints December 07. He has no specific complaints. December 08. He has no new complaints December 09. He has no new complaints December 10. He has no new complaints December 11. He has no new complaints. He states his muscle spasms are minimally improved December 12. He has no new complaints. He states his muscle spasms are slightly improved after adjustment of medication dose yesterday. - Constitutional Vitals: Temp Pulse Resp BP Pulse Ox 98.2 F 91 16 118/67 96 12/12/16 11:52 12/12/16 11:52 12/12/16 11:52 12/12/16 11:52 12/12/16 11:52 Exam: He is sitting in a chair resting comfortably and appears in no acute distress. His affect is bright and cheerful. Internal Medicine: Result - Labs CBC & Chem 7: 12/10/16 06:14 12/10/16 06:14 Consult Discharge Plan - Plan Referrals: Gina Newman, BEE WORKER [Primary Care Provider] - 1 week
[2016-12-13] MEDS: Gabapentin 300 MG CAPSULE PO SCH ×4 (05:49→20:58)
[2016-12-13] MEDS: *HR* Enoxaparin 40 MG/0.4 ML SYRINGE SQ SCH (06:21)
[2016-12-13] MEDS: Ascorbic Acid 500 MG TABLET PO SCH (06:22)
[2016-12-13] MEDS: Insulin LISPRO 300 UNITS/3 ML VIAL SQ SCH ×4 (08:02→20:59)
[2016-12-13] MEDS: Doxycycline 100 MG CAPSULE PO SCH (08:03)
[2016-12-13] MEDS: Neosporin OINT 15 GM TUBE TP SCH ×2 (08:03→20:59)
[2016-12-13] MEDS: Magnesium Oxide 400 MG TABLET PO SCH (08:04)
[2016-12-13] MEDS: Baclofen 10 MG TABLET PO SCH ×3 (08:04→20:59)
[2016-12-13] MEDS: *HR* Metformin 500 MG TABLET PO SCH ×2 (08:04→16:28)
[2016-12-13] MEDS: Psyllium 1 PACKET POWD.PACK PO SCH ×3 (08:05→21:00)
[2016-12-13] MEDS: Cyanocobalamin (B-12) 1,000 MCG TABLET PO SCH (08:05)
[2016-12-13] MEDS: *HR* OxyCODONE/APAP 5/325 TABLET PO PRN ×2 (08:14→21:04)
--- NOTE | 2016-12-13 17:15 | Internal Med Progress Note ---
Date of Encounter: 12/13/16 Time of Encounter: 17:05 - Assessment and plan (1) Cervical myelopathy Current Visit: Yes Status: Chronic Assessment and plan: December 02. Will order PT and OT evaluation. Social service will help coordinate longer-term placement/interventions December 03 continue PT OT, social service worker is working on placement. December 04. PT OT and social service involvement December 05. PT, OT, social service December 06. The cervical spine MRI of 11/30/2016 was reviewed. Continue PT and OT. Awaiting notification of Medicaid approval pending for transfer to [facility] December 07. Await Medicaid approval for SNF December 09. I explained to him that his POA is not returning calls or cooperating adequately to allow [facility] to complete his Medicaid application. I instructed him to call his POA and relayed this information to expedite his transfer. December 13. Continue PT and OT (2) Lumbar spondylosis Current Visit: Yes Status: Acute Assessment and plan: December 02. Will order MRI of LS spine. December 03 CT scan showed severe lumbar spondylosis, L5-S1 due to bilateral pars defects. Severe bilateral foraminal stenosis and L5-S1. Consider ordering an MRI December 04 consider MRI of LS spine December 05. Dr. Galvez is coming back he mentioned the MRI of LS spine he may order that tomorrow December 06. Declined MRI of LS spine last week. Continue PT and OT. 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 Anemia testing reviewed. We will continue ferrous sulfate with vitamin C. December 03. Continue ferrous sulfate and vitamin C December 04. Stable continue ferrous sulfate December 05. Continue ferrous sulfate December 06. Continue ferrous sulfate and vitamin C. Hemoglobin has improved to 10.5. December 09. Recheck labs in a.m. December 10. Hemoglobin stable at 9.0. Qualifiers: Anemia type: unspecified type Qualified Code(s): D64.9 - Anemia, unspecified (4) DM type 2 (diabetes mellitus, type 2) Current Visit: No Status: Acute Assessment and plan: December 02. Hemoglobin A1c was satisfactory at 6.7%. Continue metformin and Accu-Cheks with SSI. December 03. Continue metformin and Accu-Cheks with sliding scale insulin December 04. Continue metformin and at checks with slight scale December 05. Stable continue metformin and Accu-Cheks with sliding scale December 08. Blood sugars are improved. Continue metformin and Accu-Cheks with SSI December 09. Continue metformin with Accu-Cheks and SSI December 10. Blood sugars are stable. Continue present management Qualifiers: Diabetes mellitus complication status: without complication Diabetes mellitus chcf insulin use: without chcf use Qualified Code(s): E11.9 - Type 2 diabetes mellitus without complications (5) HTN (hypertension) Current Visit: No Status: Chronic Assessment and plan: December 02. His blood pressure has significant fluctuation. Continue present dose ACEI. December 06. His blood pressure has decreased. We will discontinue lisinopril. December 07. Blood pressure shows significant fluctuation. Will observe for now without restarting lisinopril. December 08. Continue to observe without lisinopril December 10. Blood pressures are stable. Continue to observe without medication Qualifiers: Hypertension type: essential hypertension Qualified Code(s): I10 - Essential (primary) hypertension (6) Muscle spasm Current Visit: Yes Status: Acute Assessment and plan: December 02. His cyclobenzaprine was changed yesterday from prn to scheduled. I started Valium and increased the dose of gabapentin. Continue this regimen since he seems improved overall December 03 continue Flexeril and Valium and gabapentin December 04. Stop the Flexeril as potential hypotensive side effect only increase the Valium and continue the gabapentin December 05. Hopefully low-dose Valium will help continue gabapentin December 06. Will continue Valium (lower dose) and gabapentin. December 07. He reports no improvement on present medication. I will add low dose Dilantin and baclofen and continue Valium and gabapentin. December 08. Continue Dilantin, baclofen, Valium, and gabapentin December 09. He did not mention these today. Continue present regimen December 11. Will increase baclofen to 10 mg 3 times a day and Dilantin to 100 mg every 8 hours. December 12. Continue present regimen (7) Penis, cellulitis Current Visit: Yes Status: Acute Assessment and plan: December 08. Will add doxycycline December 10. We will continue doxycycline through December 13. December 13. We will discontinue doxycycline - Subjective Interval history: December 02. He has no new complaints. Does not have significant pain at present December 06. He has no new complaints December 07. He has no specific complaints. December 08. He has no new complaints December 09. He has no new complaints December 10. He has no new complaints December 11. He has no new complaints. He states his muscle spasms are minimally improved December 12. He has no new complaints. He states his muscle spasms are slightly improved after adjustment of medication dose yesterday. December 13. He has no new complaints. He did not mention muscle spasms today - Constitutional Vitals: Temp Pulse Resp BP Pulse Ox 97.6 F 91 18 122/82 96 12/13/16 15:27 12/13/16 15:27 12/13/16 15:27 12/13/16 15:27 12/13/16 15:27 Exam: He is sitting in a chair eating supper. He appears to be comfortable. His affect is bright and cheerful. I reviewed his medications and lab results. Internal Medicine: Result - Labs CBC & Chem 7: 12/10/16 06:14 12/10/16 06:14 Consult Discharge Plan - Plan Referrals: Gina Newman, UNDERCOATER [Primary Care Provider] - 1 week
[2016-12-14 05:10] LABS: Basophils # 0.1 K/mcL (0.0-0.2); Basophils % 0.5 %; Eosinophils # 0.3 K/mcL (0.0-0.6); Eosinophils % 3.3 %; Hematocrit 32.3 % (37.5-50.1); Hemoglobin 9.6 g/dL (12.9-16.9); Immature Granulocytes % 0.6 % (0-4); Lymphocytes # 1.5 K/mcL (0.6-4.6); Lymphocytes % 15.9 %; Mean Corpuscular HGB Conc 29.7 g/dL (31.6-35.5); Mean Corpuscular Hemoglobin 25.5 pg (28.0-33.3); Mean Corpuscular Volume 85.7 fL (83.0-100.0); Mean Platelet Volume 10.1 fL (9.4-12.4); Monocytes # 0.5 K/mcL (0.0-1.3); Monocytes % 5.5 %; Platelet Count 327 K/mcL (140-400); Red Blood Count 3.77 M/mcL (4.19-5.50); Red Cell Distribution Width 16.2 % (11.5-14.5); Segmented Neutrophils % 74.2 %
[2016-12-14] MEDS: Ascorbic Acid 500 MG TABLET PO SCH (06:15)
[2016-12-14] MEDS: *HR* Enoxaparin 40 MG/0.4 ML SYRINGE SQ SCH (06:15)
[2016-12-14] MEDS: Gabapentin 300 MG CAPSULE PO SCH ×2 (06:15→15:26)
[2016-12-14] MEDS: Insulin LISPRO 300 UNITS/3 ML VIAL SQ SCH ×4 (07:45→22:00)
[2016-12-14] MEDS: *HR* OxyCODONE/APAP 5/325 TABLET PO PRN ×2 (09:55→21:58)
[2016-12-14] MEDS: Magnesium Oxide 400 MG TABLET PO SCH (09:55)
[2016-12-14] MEDS: Cyanocobalamin (B-12) 1,000 MCG TABLET PO SCH (09:55)
[2016-12-14] MEDS: Furosemide 20 MG TABLET PO SCH (09:55)
[2016-12-14] MEDS: Psyllium 1 PACKET POWD.PACK PO SCH ×3 (09:56→22:01)
[2016-12-14] MEDS: Neosporin OINT 15 GM TUBE TP SCH ×2 (09:56→22:01)
[2016-12-14] MEDS: *HR* Metformin 500 MG TABLET PO SCH ×2 (09:56→17:37)
[2016-12-14] MEDS: Baclofen 10 MG TABLET PO SCH ×3 (09:56→21:59)
--- NOTE | 2016-12-14 16:03 | Internal Med Progress Note ---
Date of Encounter: 12/14/16 Time of Encounter: 15:55 - Assessment and plan (1) Cervical myelopathy Current Visit: Yes Status: Chronic Assessment and plan: December 02. Will order PT and OT evaluation. Social service will help coordinate longer-term placement/interventions December 03 continue PT OT, nephrology social worker is working on placement. December 04. PT OT and social service involvement December 05. PT, OT, social service December 06. The cervical spine MRI of 11/30/2016 was reviewed. Continue PT and OT. Awaiting notification of Medicaid approval pending for transfer to [facility] December 07. Await Medicaid approval for SNF December 09. I explained to him that his POA is not returning calls or cooperating adequately to allow [facility] to complete his Medicaid application. I instructed him to call his POA and relayed this information to expedite his transfer. December 13. Continue PT and OT (2) Lumbar spondylosis Current Visit: Yes Status: Acute Assessment and plan: December 02. Will order MRI of LS spine. December 03 CT scan showed severe lumbar spondylosis, L5-S1 due to bilateral pars defects. Severe bilateral foraminal stenosis and L5-S1. Consider ordering an MRI December 04 consider MRI of LS spine December 05. Dr. Galvez is coming back he mentioned the MRI of LS spine he may order that tomorrow December 06. Declined MRI of LS spine last week. Continue PT and OT. 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 Anemia testing reviewed. We will continue ferrous sulfate with vitamin C. December 03. Continue ferrous sulfate and vitamin C December 04. Stable continue ferrous sulfate December 05. Continue ferrous sulfate December 06. Continue ferrous sulfate and vitamin C. Hemoglobin has improved to 10.5. December 09. Recheck labs in a.m. December 10. Hemoglobin stable at 9.0. Qualifiers: Anemia type: unspecified type Qualified Code(s): D64.9 - Anemia, unspecified (4) DM type 2 (diabetes mellitus, type 2) Current Visit: No Status: Acute Assessment and plan: December 02. Hemoglobin A1c was satisfactory at 6.7%. Continue metformin and Accu-Cheks with SSI. December 03. Continue metformin and Accu-Cheks with sliding scale insulin December 04. Continue metformin and at checks with slight scale December 05. Stable continue metformin and Accu-Cheks with sliding scale December 08. Blood sugars are improved. Continue metformin and Accu-Cheks with SSI December 09. Continue metformin with Accu-Cheks and SSI December 10. Blood sugars are stable. Continue present management Qualifiers: Diabetes mellitus complication status: without complication Diabetes mellitus long-term insulin use: without long-term use Qualified Code(s): E11.9 - Type 2 diabetes mellitus without complications (5) HTN (hypertension) Current Visit: No Status: Chronic Assessment and plan: December 02. His blood pressure has significant fluctuation. Continue present dose ACEI. December 06. His blood pressure has decreased. We will discontinue lisinopril. December 07. Blood pressure shows significant fluctuation. Will observe for now without restarting lisinopril. December 08. Continue to observe without lisinopril December 10. Blood pressures are stable. Continue to observe without medication Qualifiers: Hypertension type: essential hypertension Qualified Code(s): I10 - Essential (primary) hypertension (6) Muscle spasm Current Visit: Yes Status: Acute Assessment and plan: December 02. His cyclobenzaprine was changed yesterday from prn to scheduled. I started Valium and increased the dose of gabapentin. Continue this regimen since he seems improved overall December 03 continue Flexeril and Valium and gabapentin December 04. Stop the Flexeril as potential hypotensive side effect only increase the Valium and continue the gabapentin December 05. Hopefully low-dose Valium will help continue gabapentin December 06. Will continue Valium (lower dose) and gabapentin. December 07. He reports no improvement on present medication. I will add low dose Dilantin and baclofen and continue Valium and gabapentin. December 08. Continue Dilantin, baclofen, Valium, and gabapentin December 09. He did not mention these today. Continue present regimen December 11. Will increase baclofen to 10 mg 3 times a day and Dilantin to 100 mg every 8 hours. December 12. Continue present regimen (7) Penis, cellulitis Current Visit: Yes Status: Acute Assessment and plan: December 08. Will add doxycycline December 10. We will continue doxycycline through December 13. December 13. We will discontinue doxycycline - Subjective Interval history: December 02. He has no new complaints. Does not have significant pain at present December 06. He has no new complaints December 07. He has no specific complaints. December 08. He has no new complaints December 09. He has no new complaints December 10. He has no new complaints December 11. He has no new complaints. He states his muscle spasms are minimally improved December 12. He has no new complaints. He states his muscle spasms are slightly improved after adjustment of medication dose yesterday. December 13. He has no new complaints. He did not mention muscle spasms today December 14. He has no new complaints - Constitutional Vitals: Temp Pulse Resp BP Pulse Ox 97.6 F 76 16 124/68 96 12/14/16 15:55 12/14/16 15:55 12/14/16 15:55 12/14/16 15:55 12/14/16 15:55 Exam: He is sitting in a chair resting Comfortably. Heart is regular without murmurs gallops or ectopics. Lungs are clear anteriorly. I reviewed his medications and lab results. Internal Medicine: Result - Labs CBC & Chem 7: 12/14/16 04:40 12/10/16 06:14 Labs: Short CBC 12/14/16 Range/Units 04:40 WBC 9.5 (4.3-11.1) K/mcL Hgb 9.6 L (12.9-16.9) g/dL Hct 32.3 L (37.5-50.1) % Plt Count 327 (140-400) K/mcL Neutrophils # 7.0 (1.6-8.9) K/mcL Consult Discharge Plan - Plan Referrals: Gina Newman, [employer] [Primary Care Provider] - 1 week
[2016-12-15] MEDS: Gabapentin 300 MG CAPSULE PO SCH ×4 (00:25→23:57)
[2016-12-15] MEDS: Ascorbic Acid 500 MG TABLET PO SCH (06:39)
[2016-12-15] MEDS: *HR* OxyCODONE/APAP 5/325 TABLET PO PRN ×2 (06:39→21:12)
[2016-12-15] MEDS: *HR* Enoxaparin 40 MG/0.4 ML SYRINGE SQ SCH (06:40)
[2016-12-15] MEDS: Psyllium 1 PACKET POWD.PACK PO SCH ×3 (08:05→21:11)
[2016-12-15] MEDS: Cyanocobalamin (B-12) 1,000 MCG TABLET PO SCH (08:05)
[2016-12-15] MEDS: Neosporin OINT 15 GM TUBE TP SCH ×2 (08:06→21:11)
[2016-12-15] MEDS: *HR* Metformin 500 MG TABLET PO SCH ×2 (08:06→16:32)
[2016-12-15] MEDS: Baclofen 10 MG TABLET PO SCH ×3 (08:06→21:11)
[2016-12-15] MEDS: Magnesium Oxide 400 MG TABLET PO SCH (08:06)
[2016-12-15] MEDS: Insulin LISPRO 300 UNITS/3 ML VIAL SQ SCH ×4 (08:07→21:14)
--- NOTE | 2016-12-15 17:30 | Internal Med Progress Note ---
Date of Encounter: 12/15/16 Time of Encounter: 17:20 - Assessment and plan (1) Cervical myelopathy Current Visit: Yes Status: Chronic Assessment and plan: December 02. Will order PT and OT evaluation. Social service will help coordinate longer-term placement/interventions December 03 continue PT OT, social media specialist is working on placement. December 04. PT OT and social service involvement December 05. PT, OT, social service December 06. The cervical spine MRI of 11/30/2016 was reviewed. Continue PT and OT. Awaiting notification of Medicaid approval pending for transfer to [facility] December 07. Await Medicaid approval for SNF December 09. I explained to him that his POA is not returning calls or cooperating adequately to allow [facility] to complete his Medicaid application. I instructed him to call his POA and relayed this information to expedite his transfer. December 13. Continue PT and OT (2) Lumbar spondylosis Current Visit: Yes Status: Acute Assessment and plan: December 02. Will order MRI of LS spine. December 03 CT scan showed severe lumbar spondylosis, L5-S1 due to bilateral pars defects. Severe bilateral foraminal stenosis and L5-S1. Consider ordering an MRI December 04 consider MRI of LS spine December 05. Dr. Galvez is coming back he mentioned the MRI of LS spine he may order that tomorrow December 06. Declined MRI of LS spine last week. Continue PT and OT. 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 Anemia testing reviewed. We will continue ferrous sulfate with vitamin C. December 03. Continue ferrous sulfate and vitamin C December 04. Stable continue ferrous sulfate December 05. Continue ferrous sulfate December 06. Continue ferrous sulfate and vitamin C. Hemoglobin has improved to 10.5. December 09. Recheck labs in a.m. December 10. Hemoglobin stable at 9.0. Qualifiers: Anemia type: unspecified type Qualified Code(s): D64.9 - Anemia, unspecified (4) DM type 2 (diabetes mellitus, type 2) Current Visit: No Status: Acute Assessment and plan: December 02. Hemoglobin A1c was satisfactory at 6.7%. Continue metformin and Accu-Cheks with SSI. December 03. Continue metformin and Accu-Cheks with sliding scale insulin December 04. Continue metformin and at checks with slight scale December 05. Stable continue metformin and Accu-Cheks with sliding scale December 08. Blood sugars are improved. Continue metformin and Accu-Cheks with SSI December 09. Continue metformin with Accu-Cheks and SSI December 10. Blood sugars are stable. Continue present management Qualifiers: Diabetes mellitus complication status: without complication Diabetes mellitus prison insulin use: without prison use Qualified Code(s): E11.9 - Type 2 diabetes mellitus without complications (5) HTN (hypertension) Current Visit: No Status: Chronic Assessment and plan: December 02. His blood pressure has significant fluctuation. Continue present dose ACEI. December 06. His blood pressure has decreased. We will discontinue lisinopril. December 07. Blood pressure shows significant fluctuation. Will observe for now without restarting lisinopril. December 08. Continue to observe without lisinopril December 10. Blood pressures are stable. Continue to observe without medication Qualifiers: Hypertension type: essential hypertension Qualified Code(s): I10 - Essential (primary) hypertension (6) Muscle spasm Current Visit: Yes Status: Acute Assessment and plan: December 02. His cyclobenzaprine was changed yesterday from prn to scheduled. I started Valium and increased the dose of gabapentin. Continue this regimen since he seems improved overall December 03 continue Flexeril and Valium and gabapentin December 04. Stop the Flexeril as potential hypotensive side effect only increase the Valium and continue the gabapentin December 05. Hopefully low-dose Valium will help continue gabapentin December 06. Will continue Valium (lower dose) and gabapentin. December 07. He reports no improvement on present medication. I will add low dose Dilantin and baclofen and continue Valium and gabapentin. December 08. Continue Dilantin, baclofen, Valium, and gabapentin December 09. He did not mention these today. Continue present regimen December 11. Will increase baclofen to 10 mg 3 times a day and Dilantin to 100 mg every 8 hours. December 12. Continue present regimen (7) Penis, cellulitis Current Visit: Yes Status: Acute Assessment and plan: December 08. Will add doxycycline December 10. We will continue doxycycline through December 13. December 13. We will discontinue doxycycline - Subjective Interval history: December 02. He has no new complaints. Does not have significant pain at present December 06. He has no new complaints December 07. He has no specific complaints. December 08. He has no new complaints December 09. He has no new complaints December 10. He has no new complaints December 11. He has no new complaints. He states his muscle spasms are minimally improved December 12. He has no new complaints. He states his muscle spasms are slightly improved after adjustment of medication dose yesterday. December 13. He has no new complaints. He did not mention muscle spasms today December 14. He has no new complaints December 15. He has no new complaints. He states he has decided to go home instead of going to [facility]. His POA will be in the hospital tomorrow to receive training from therapy. - Constitutional Vitals: Temp Pulse Resp BP Pulse Ox 98.4 F 84 16 132/76 96 12/15/16 14:59 12/15/16 14:59 12/15/16 14:59 12/15/16 14:59 12/15/16 14:59 Exam: He is resting comfortably sitting on the side of bed and in no acute distress. His heart is regular without murmurs gallops or ectopics. Lungs are clear. Externally show no pitting edema. I reviewed his medications and lab results. Internal Medicine: Result - Labs CBC & Chem 7: 12/14/16 04:40 12/10/16 06:14 Consult Discharge Plan - Plan Referrals: Gina Newman, [employer] [Primary Care Provider] - 1 week
[2016-12-16] MEDS: *HR* OxyCODONE/APAP 5/325 TABLET PO PRN ×2 (06:31→14:15)
[2016-12-16] MEDS: Ascorbic Acid 500 MG TABLET PO SCH (06:31)
[2016-12-16] MEDS ORDERED: *HR* Enoxaparin 40 MG/0.4 ML SYRINGE SQ SCH (07:00)
[2016-12-16] MEDS: Insulin LISPRO 300 UNITS/3 ML VIAL SQ SCH ×2 (07:59→12:11)
[2016-12-16] MEDS: Psyllium 1 PACKET POWD.PACK PO SCH ×2 (10:18→14:10)
[2016-12-16] MEDS: Furosemide 20 MG TABLET PO SCH (10:18)
[2016-12-16] MEDS: Cyanocobalamin (B-12) 1,000 MCG TABLET PO SCH (10:18)
[2016-12-16] MEDS: Magnesium Oxide 400 MG TABLET PO SCH (10:18)
[2016-12-16] MEDS: *HR* Metformin 500 MG TABLET PO SCH (10:18)
[2016-12-16] MEDS: Baclofen 10 MG TABLET PO SCH ×2 (10:18→14:10)
[2016-12-16] MEDS: Gabapentin 300 MG CAPSULE PO SCH ×2 (10:19→14:10)
[2016-12-16 10:27] VITALS: BP 117/73
[2016-12-16] MEDS: Neosporin OINT 15 GM TUBE TP SCH (12:14)
--- NOTE | 2016-12-16 14:57 | Discharge Summary ---
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 Qualified Code(s): M47.816 - Spondylosis without myelopathy or radiculopathy, lumbar region (3) Anemia Priority: Secondary Status: Chronic Qualifiers: Anemia type: unspecified type Qualified Code(s): D64.9 - Anemia, unspecified (4) DM type 2 (diabetes mellitus, type 2) Priority: Secondary Status: Chronic Qualifiers: Diabetes mellitus complication status: without complication Diabetes mellitus extermination supervisor insulin use: without extermination supervisor use Qualified Code(s): E11.9 - Type 2 diabetes mellitus without complications (5) HTN (hypertension) Priority: Secondary Status: Chronic Qualifiers: Hypertension type: essential hypertension Qualified Code(s): I10 - Essential (primary) hypertension (6) Muscle spasm Priority: Secondary Status: Acute (7) Penis, cellulitis Priority: Secondary Status: Acute - Discharge Medications Prescriptions: Ascorbic Acid [Vitamin C] 500 mg PO DAILY #30 tablet Baclofen [Lioresal] 10 mg PO TID #21 tablet Diazepam [Valium] 2 mg PO BID #14 tablet Ferrous Sulfate 325 mg PO DAILY #30 tablet Gabapentin [Neurontin] 600 mg PO Q8H #42 capsule Magnesium Oxide [Mag-Ox] 400 mg PO DAILY #7 tablet Phenytoin ER [Dilantin ER] 100 mg PO Q8H #21 capsule Home Medications: Amitriptyline [Elavil] 25 mg PO HS 09/18/15 [History] Docusate Sodium [Colace] 100 mg PO BID PRN 09/18/15 [History] Enalapril Maleate [Vasotec] 20 mg PO QAM 09/18/15 [History] Lactulose 10 gm PO QAM 09/18/15 [History] Omeprazole [PriLOSEC] 20 mg PO DAILY 09/18/15 [History] Pravastatin Sodium [Pravachol] 20 mg PO QAM 09/18/15 [History] Oxycodone HCl/Acetaminophen [Percocet 5-325 mg Tablet] 1 each PO TID 08/08/16 [ History] Psyllium [Metamucil Fiber Singles Packet] 1 packet PO TID #90 powd.pack [Rx] Metformin [Glucophage] 500 mg PO BIDWM #60 tablet 08/20/16 [Rx] Ascorbic Acid [Vitamin C] 500 mg PO DAILY #30 tablet 12/16/16 [Rx] Baclofen [Lioresal] 10 mg PO TID #21 tablet 12/16/16 [Rx] Diazepam [Valium] 2 mg PO BID #14 tablet 12/16/16 [Rx] Ferrous Sulfate 325 mg PO DAILY #30 tablet 12/16/16 [Rx] Furosemide [Lasix] 20 mg PO Q48H #15 12/16/16 [Rx] Gabapentin [Neurontin] 600 mg PO Q8H #42 capsule 12/16/16 [Rx] Magnesium Oxide [Mag-Ox] 400 mg PO DAILY #7 tablet 12/16/16 [Rx] Phenytoin ER [Dilantin ER] 100 mg PO Q8H #21 capsule 12/16/16 [Rx] Allergies/Adverse Reactions: Allergies Tizanidine [From Zanaflex] Allergy (Verified 08/08/16 14:29) Vomiting Date of admission: 11/30/16 18:35 Primary care physician: Gina Newman CNP Consults: 12/02/16 10:15 Consult to Occupational Therapy [CONS] Routine Comment: Evaluate, develop and implement POC Consult to Physical Therapy [CONS] Routine Comment: Evaluate, develop and implement POC - Patient Status Disposition: Home, Self-Care Condition: Good Overall status at discharge: patient is progressing back to baseline - Discharge Instructions Follow Up With: Gina Newman CNP [Primary Care Provider] - 1 week - Diet and Activity Activity: as per physical therapy, resume usual activities as tolerated Diet: advance to your usual diet Hospital course: Mr. Otoole is a 76 year old male who came to emergency room stating he had progressive weakness onset several months ago with worsening in the past few days to the point he was unable to care for himself adequately at home. He reports he cannot get out of a chair to do ADL. He was evaluated in emergency room and admitted to [facility] until further disposition could be determined. He reports the progressive weakness involved his arms and legs. 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 He had cervical spine myelopathy and underwent decompressive surgery June 2010. He has not followed with a neurologist or neurosurgeon since then. He states he has "spasms" occurring frequently and has been prescribed cyclobenzaprine which is minimally effective. He denies large distribution strokes or seizures. He does have a diagnosis of peripheral neuropathy. Initial orders were written by the emergency room physician. I saw him on December 01 performed history and physical. A cervical and LS spine MRI was done and showed no acute findings requiring neurosurgical referral. He had physical therapy and occupational therapy evaluations and ongoing intervention. He made gradual progress in therapy. He initially felt he would not be able to return to home environment so efforts were made to place him in a local SNF. A few days before the end of his stay he decided he was able to return to home environment. His POA received training on his therapy needs at home. On December 16 arrangements were completed for him to be discharged home. He will follow with Gina Newman CNP within 1 week. Additional lab work during hospital stay showed anemia testing with iron 21, transferrin saturation 7%, transferrin 218, ferritin 54, B12 1176, and folate 15.8. He was started on ferrous sulfate and vitamin C and these will be continued at home. Hemoglobin A1c was satisfactory at 6.7%. He will continue metformin as at home. His ACEI was held during his hospital stay. His blood pressure was initially controlled well but did rise toward the end of his hospital stay. He will resume enalapril upon discharge. His muscle spasms were treated with low-dose Valium, Dilantin, baclofen, and gabapentin. This combination regimen seemed to improve his symptoms and he will continue this upon discharge. - Time Spent with Patient Total time spent providing and/or coordinating discharge services: - Constitutional Vitals: Temp Pulse Resp BP Pulse Ox 97.8 F 89 16 117/73 96 12/16/16 10:25 12/16/16 10:25 12/16/16 10:25 12/16/16 10:25 12/16/16 10:25
[2016-12-16] MEDS ORDERED: Ondansetron ODT 4 MG TAB.RAPDIS SL ONE (15:04)
== END 2016-12-16 17:09 | disposition home or self-care (01) ==
LOC: INPPIK 15:22 → EMEROOPIK 15:22 → INPPIK 18:31
PROVIDERS: ADMIT Internal Medicine; ATTEND Internal Medicine